=== PATIENT | female | born 1940 | race Two or more races ===

== ENCOUNTER 2020-04-15 13:04 | Inpatient (IN) | payer OTHER, MEDICAID, SELFPAY ==
--- NOTE | 2020-04-15 | ECG_ITS ---
Test Reason : CHEST PAIN Blood Pressure : / mmHG Vent. Rate : 058 BPM Atrial Rate : 058 BPM P-R Int : 210 ms QRS Dur : 088 ms QT Int : 444 ms P-R-T Axes : 079 023 083 degrees QTc Int : 435 ms Sinus bradycardia with 1st degree A-V block with Premature atrial complexes Nonspecific T wave abnormality Lateral leads Abnormal ECG When compared with ECG of 01-JUN-2017 11:55, Premature atrial complexes are now Present T wave amplitude has decreased in Lateral leads Referred By: Generic ED Physician Electronically Signed By:STIVEN HATCH MD
--- NOTE | 2020-04-15 14:04 | ED_ITS ---
HPI - Chest Pain General Chief Complaint: Chest Pain Stated Complaint: CHEST PAIN Time Seen by Provider: 04/15/20 14:04 Source: patient Mode of arrival: ambulatory Limitations: no limitations and language barrier History of Present Illness HPI narrative: patient's history of coronary artery disease had MS in 2017 in [place] no stent was placed cardiac catheterization at that time showed mild aortic insufficiency and mild dilatation of aortic root, with history of hypertension coronal disease high cholesterol came here for left-sided chest pain since 09:00 pressure-like feeling without any significant radiation denies any shortness of breath no diaphoresis no nausea no vomiting no stomach painPatient checked her blood pressure was 187/104 at that time MD complaint: chest discomfort Pertinent past history: coronary artery disease Onset (ago): hour(s) (5) Timing of current episode: constant Prior episodes: Yes Onset: during rest Pain location: left chest Pain radiation: none Severity: mild Related Data Allergies Allergy/AdvReac Type Severity Reaction Status Date / Time No Known Allergies Allergy Verified 04/15/20 14:12 [No Known Allergies*] Review of Systems Review of Systems: REVIEW OF SYSTEMS: Pertinent positives and negatives are stated above in the history. GEN: no fevers, chills, fatigue HEENT: no nasal congestion, sore throat, ear pain NEURO: no headache, dizziness, focal weakness PULM: no cough, shortness of breath CV: no palpitations, LE edema ABD: no abdominal pain, nausea, vomiting, diarrhea : no dysuria, urgency, frequency SKIN: no rash ROS otherwise negative x 10 PMFSH Past Medical History Medical History Hyperlipidemia Hypertension Social History Social History Alcohol intake: never Smoked in Last 30 Days: No Use of substances other than those prescribed or required for medical reasons: No Advance Directives: No Advance Directives Information Provided: Yes Physical Exam Vital Signs: Vital Signs: Last Vital Signs Temp 98.4 F 04/15/20 15:26 Pulse 57 04/15/20 15:26 Resp 16 04/15/20 15:26 BP 161/75 H 04/15/20 15:26 Pulse Ox 94 04/15/20 15:26 Body Mass Index 19.7 Appearance: Alert. Oriented X3. No acute distress. Eyes: Pupils equal, round and reactive to light. ENT: Pharynx normal. Neck: Normal inspection. Neck supple. CVS: Normal heart rate and rhythm. Pulses normal. Respiratory: No respiratory distress. Breath sounds normal. Abdomen: Soft and nontender. nohepato splenomegaly Skin: Skin warm and dry. Normal skin color. Normal skin turgor. Extremities: No lower extremity edema. Good range of movement Neuro: Oriented X 3. No motor deficit. No sensory deficit. MDM - Chest Pain MDM Narrative Medical decision making narrative: patient's ascending aorta aneurysm last CT chest done in 06/2017 showed ascending aorta of 4.5 cm. Patient came with the c hest pain at this time will repeat the CTA to rule out significant increase in aneurysm versus dissection. Patient signed out to Dr. Mckinnon pending CTA report and repeat troponin Differential Diagnosis Differential diagnosis: Likely unstable angina pectoris and chest pain Medical Records Data Attestation: I reviewed the patient's medical records. Lab Data Result diagrams: 04/15/20 14:28 04/15/20 15:26 Labs: Lab Results 04/15/20 04/15/20 04/15/20 Range/Units 14:28 14:28 14:28 WBC 8.0 (4.8-10.8) X10*3/uL RBC 5.32 (4.20-5.50) X10*6/uL Hgb 16.1 H (12.0-16.0) g/dl Hct 50.2 H (37-47) % MCV 94.4 (80-98) fL MCH 30.3 (27.0-33.0) pg MCHC 32.1 (31.0-35.0) g/dl RDW 14.5 (11.0-16.0) % Plt Count 195 (160-400) X10*3/uL MPV 10.7 (9.4-12.3) fL Immature Gran % (Auto) 0.4 (0.0-0.4) % Neut % (Auto) 62.0 (45-73) % Lymph % (Auto) 26.0 (20-40) % [place] % (Auto) 10.7 (2-11) % Eos % (Auto) 0.0 (0-4) % Baso % (Auto) 0.9 (0-2) % Lymph # (Auto) 2.1 (1.2-4.9) X10*3/uL [place] # (Auto) 0.9 (0.1-1.2) X10*3/uL Eos # (Auto) 0.0 (0.0-0.4) X10*3/uL Baso # (Auto) 0.1 (0.0-0.2) X10*3/uL Abs Immat Gran (auto) 0.03 (0.00-0.03) X10*3/uL Absolute Neuts (auto) 5.0 (2.0-8.3) X10*3/uL Absolute Nucleated RBC 0.000 (0.0-0.012) X10*3/uL Nucleated RBC % (auto) 0.0 (0.0-0.2) /100WBC Hold Blue Top SEE NOTE Sodium Cancelled Potassium Cancelled Chloride Cancelled Carbon Dioxide Cancelled Anion Gap Cancelled BUN Cancelled Creatinine Cancelled Estim Creat Clear Calc Cancelled Estimated GFR Cancelled Random Glucose Cancelled Calcium Cancelled Troponin I High Sens (<3.5-17.0) ng/L 04/15/20 04/15/20 Range/Units 14:28 15:26 WBC (4.8-10.8) X10*3/uL RBC (4.20-5.50) X10*6/uL Hgb (12.0-16.0) g/dl Hct (37-47) % MCV (80-98) fL MCH (27.0-33.0) pg MCHC (31.0-35.0) g/dl RDW (11.0-16.0) % Plt Count (160-400) X10*3/uL MPV (9.4-12.3) fL Immature Gran % (Auto) (0.0-0.4) % Neut % (Auto) (45-73) % Lymph % (Auto) (20-40) % [place] % (Auto) (2-11) % Eos % (Auto) (0-4) % Baso % (Auto) (0-2) % Lymph # (Auto) (1.2-4.9) X10*3/uL [place] # (Auto) (0.1-1.2) X10*3/uL Eos # (Auto) (0.0-0.4) X10*3/uL Baso # (Auto) (0.0-0.2) X10*3/uL Abs Immat Gran (auto) (0.00-0.03) X10*3/uL Absolute Neuts (auto) (2.0-8.3) X10*3/uL Absolute Nucleated RBC (0.0-0.012) X10*3/uL Nucleated RBC % (auto) (0.0-0.2) /100WBC Hold Blue Top Sodium 140 Potassium 4.0 Chloride 107 Carbon Dioxide 27 Anion Gap 10 L BUN 16 Creatinine 0.79 Estim Creat Clear Calc 45.3 Estimated GFR > 60 Random Glucose 96 Calcium 9.6 Troponin I High Sens 54.1 H (<3.5-17.0) ng/L ECG Data ECG #1: Attestation: I personally reviewed and interpreted this ECG as follows: ECG interpretation date: 04/15/20 Interpretation: sinus bradycardia with ventricular rate of 58 with first- degree heart block p.r. interval [address] T wave changes normal axis impression sinus bradycardia with first-degree block no acute i schemia Discharge Plan Discharge Clinical Impression: Chest pain
[2020-04-15 14:13] VITALS: BP 168/89; PULSE 60; RESP 18; TEMP 36.6; O2SAT 100; BMI 19.7
--- NOTE | 2020-04-15 14:13 | XR_ITS ---
EXAMINATION: XR CHEST CLINICAL INFORMATION: Chest pain. COMPARISON: Chest 06/01/2017 TECHNIQUE: Frontal view of the chest was obtained. FINDINGS: The lungs are well-expanded and clear of acute pneumonic process. The heart size and pulmonary vascularity is normal. No gross organomegaly seen. XR/XR chest 1V IMPRESSION: Unremarkable chest exam
[2020-04-15 14:38] LABS: MANUAL DIFF FLAG NO
[2020-04-15 14:40] LABS: Basophils Absolute Auto 0.1 X10*3/uL (0.0-0.2); Basophils Percent Auto 0.9 % (0-2); Hematocrit 50.2 % (37-47); Hemoglobin 16.1 g/dl (12.0-16.0); Imm Gran Abs Auto 0.03 X10*3/uL (0.00-0.03); Imm Gran Pct Auto 0.4 % (0.0-0.4); Lymphocytes Absolute Auto 2.1 X10*3/uL (1.2-4.9); Mean Corpuscular HGB Conc 32.1 g/dl (31.0-35.0); Mean Corpuscular Hemoglobin 30.3 pg (27.0-33.0); Mean Corpuscular Volume 94.4 fL (80-98); Mean Platelet Volume 10.7 fL (9.4-12.3); Monocytes Absolute Auto 0.9 X10*3/uL (0.1-1.2); Monocytes Percent Auto 10.7 % (2-11); Platelet Count 195 X10*3/uL (160-400); Red Blood Count 5.32 X10*6/uL (4.20-5.50); Red Cell Distribution Width 14.5 % (11.0-16.0)
[2020-04-15] MEDS: Aspirin 81 MG TAB.CHEW 162 MG PO (14:53)
[2020-04-15] MEDS: Nitroglycerin 2 % Oint 1 GM Packet 0.5 INCH TRANSDERMA ×2 (14:54→22:25)
[2020-04-15 15:26] VITALS: BP 161/75; PULSE 57; RESP 16; TEMP 36.9; O2SAT 94
[2020-04-15 15:32] LABS: Troponin-I High Sensitivity 54.1 ng/L (<3.5-17.0)
[2020-04-15 16:23] LABS: Anion Gap 10 (12-20); Blood Urea Nitrogen 16 mg/dL (9-16); Calcium 9.6 mg/dL (8.4-10.2); Carbon Dioxide 27 mmol/L (22-29); Chloride 107 mmol/L (96-108); Creatinine Clr Calc Pharmacy 45.3; Estimated Glomerular Filt Rate > 60; Glucose Random 96 mg/dL (60-115); Sodium 140 mmol/L (135-145)
--- NOTE | 2020-04-15 17:05 | CT_ITS ---
EXAMINATION: CT ANGIOGRAM CHEST, ABDOMEN AND PELVIS CLINICAL INFORMATION: Aortic aneurysm. COMPARISON: CT of chest 06/30/2017. Chest x-ray 04/15/2020. CT abdomen pelvis 07/02/2015 TECHNIQUE: Noncontrast axial images obtained through the chest. Multiple axial images were obtained through the chest abdomen and pelvis following the administration of 70 mL of Omnipaque 350 intravenous contrast. Coronal and sagittal 2-D reformatted images performed at CT scanner. 2-D axial, sagittal and coronal MIPS images performed at CT scanner No 3-D imaging. DLP: 580 mGy-cm. FINDINGS: VASCULAR: No acute change of the aorta. There is no dissection. There is no aneurysm. There is mild atherosclerotic vascular wall calcifications of the thoracic and abdominal aorta. There is normal enhancement of the major branch vessels at the thoracic aortic arch as well as in the abdomen and pelvis. 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 There are vascular calcifications at the origin of the vessel. The pulmonary arteries are well opacified. No evidence of central pulmonary embolism. MEDIASTINUM: No mediastinal mass. No significant lymphadenopathy. There is no pericardial effusion. LUNGS: No acute infiltrate. No interstitial or reticular opacity. 4 mm calcified granuloma right lower lobe axial image 45 series 8 no suspicious lung nodules. FLUID: There is no pericardial effusion. There is no pleural effusion. AXILLA: No significant lymphadenopathy. LIVER, GALLBLADDER, AND BILIARY TREE: The liver is normal in size, shape, and attenuation. No focal hepatic lesion or biliary ductal dilatation is present. The gallbladder is unremarkable with no evidence of radiopaque gallstones, gallbladder wall thickening, or obvious pericholecystic inflammatory changes. PANCREAS: Unremarkable. SPLEEN: Unremarkable. ADRENAL GLANDS: Stable right adrenal nodule measuring 1.6 x 1 cm unchanged since CAT scan June 2017. Left adrenal gland is normal. KIDNEYS AND URETERS: Nonobstructive stone lower pole of the left kidney measuring 6 mm. Midpole left kidney there is a nonobstructive 3 mm stone. There is no stone in the right kidney. No ureteral calculi. No hydronephrosis. Normal enhancement of the cortex of both kidneys. There are renal cysts.. Largest renal cyst is a7 cm cyst midpole left kidney BLADDER: Unremarkable. GASTROINTESTINAL TRACT: There are numerous diverticula of the sigmoid colon and left colon and scattered diverticula of the right colon. There is no diverticulitis. There is no bowel wall thickening /edema. There is no bowel obstruction. There is a moderate volume of stool in the colon. The appendix is normal . The small bowel loops are unremarkable. The stomach is normal. There is no hiatal hernia. ABDOMINAL WALL: No significant hernia is appreciated. LYMPH NODES: Normal. PELVIC VISCERA: Unremarkable. OSSEOUS STRUCTURES: Unremarkable. CT/CT angio abdomen pelvis IMPRESSION: 1. No aneurysm or dissection of aorta. There are scattered atherosclerotic vascular calcifications of aorta. 2. No acute change of chest. 3. Diverticulosis of the colon. No acute change of the bowel. 4. Stable right adrenal nodule unchanged since 2018 consistent with a benign nodule. [This CT examination was performed using dose optimization techniques as appropriate, variously including the following: *Automated exposure control *Adjustment of mA and/or kV according to patient size (this includes techniques or standardized protocols for targeted exams where dose is matched to indication/reason for exam; i.e. extremities or head) *Use of iterative reconstruction technique]
[2020-04-15] MEDS: Acetaminophen 325 MG TABLET 975 MG PO (17:59)
[2020-04-15] MEDS: 0.9 % Sodium Chloride 1,000 ML 999 ML IVCONT (18:00)
[2020-04-15] MEDS: iohexoL 350 MG/ML 100 ML INFUS..BTL IV (18:34)
[2020-04-15 18:56] LABS: Troponin-I High Sensitivity 289.2 ng/L (<3.5-17.0)
--- NOTE | 2020-04-15 20:18 | PM.IMHP ---
History of Present Illness Date of Service: 04/15/20 Chief Complaint: Chest pain 79 y/o female with PMHX of HTN, HLP, CKD and Previous KS (3 years ago in [place]) s/p angiogram who presented from home due to chest pain> Per history provided by the patient, today around 9 am started experiencing a chest pressure, substernal, none radiating, not associated with exertion, not associated with SOB, nausea or vomiting. Patient reports that the pain has been constant since. 3 years ago reported that had a similar event in [place] and underwent a cardiac cath. After cardiac cath was told that needed a open heart surgery but patient's daughter declined the procedure and after that did not follow up with anybody else. Patient reports that since that incident has been feeling well till today. On presentation to the ED patient was found to have a BP of 168/89 mmHg, HR 57, no evidence of fever, First troponin of 54 which increased to 289.; Initial EKG showing no evidence of ST T wave changes. Decision for admission given. Patient seen and examined at the bedside, laying down in bed in no acute distress. ROS as above otherwise negative. Physical exam unremarkable. Patient reports that after receiving aspirin and nitroglycerin earlier the pain is subsiding. PMHX: HTN, HLP, KS, CKD PSx: Cardiac cath 2016 Toxic habits: No hx of alcohol abuse, smoking or IVDA Review of Systems Cardiovascular: Cardiovascular: Reports chest pain at rest [facility] Medical History Hyperlipidemia Hypertension Functional capacity: independent ambulation Social History Alcohol intake: never Smoked in Last 30 Days: No Use of substances other than those prescribed or required for medical reasons: No Advance Directives: No Advance Directives Information Provided: Yes Meds Allergies Allergy/AdvReac Type Severity Reaction Status Date / Time No Known Allergies Allergy Verified 04/15/20 14:12 [No Known Allergies*] Physical Exam Vital Signs and Narrative: Vital Signs: Last Vital Signs Temp 98.4 F 04/15/20 15:26 Pulse 57 04/15/20 15:26 Resp 16 04/15/20 15:26 BP 161/75 H 04/15/20 15:26 Pulse Ox 94 04/15/20 15:26 Body Mass Index 19.7 Const: General: cooperative, comfortable and no acute distress Orientation/consciousness: oriented to person, oriented to place and oriented to time HENMT: Head: Yes normal to inspection Eyes: General: appearance normal, both eyes and all related structures Neck: Yes normal visual inspection Chest: Chest palpation & inspection: normal inspection of the chest Resp: Effort & Inspection: normal respiratory effort Auscultation: clear to auscultation bilaterally Cardio: Jugular venous distension: no JVD Rate: regular rate Rhythm: regular rhythm Heart sounds: S1 normal heart sound present GI: Inspection: Yes normal to inspection Skin: General skin exam: no rashes or lesions noted Neuro: General: oriented to person, oriented to place and oriented to time Cognition (Neuro): normal cognition Extrem: General: Yes normal to inspection Results Labs CBC and Chem 7: 04/15/20 14:28 04/15/20 15:26 Labs: Laboratory Results - last 24 hr 04/15/20 04/15/20 04/15/20 14:28 14:28 14:28 MCV 94.4 MCH 30.3 MCHC 32.1 RDW 14.5 Plt Count 195 MPV 10.7 Immature Gran % (Auto) 0.4 Neut % (Auto) 62.0 Lymph % (Auto) 26.0 [place] % (Auto) 10.7 Eos % (Auto) 0.0 Baso % (Auto) 0.9 Lymph # (Auto) 2.1 [place] # (Auto) 0.9 Eos # (Auto) 0.0 Baso # (Auto) 0.1 Abs Immat Gran (auto) 0.03 Absolute Neuts (auto) 5.0 Absolute Nucleated RBC 0.000 Nucleated RBC % (auto) 0.0 Hold Blue Top SEE NOTE Anion Gap Cancelled Estim Creat Clear Calc Cancelled Estimated GFR Cancelled Random Glucose Cancelled Calcium Cancelled Troponin I High Sens 04/15/20 04/15/20 04/15/20 14:28 15:26 18:08 MCV MCH MCHC RDW Plt Count MPV Immature Gran % (Auto) Neut % (Auto) Lymph % (Auto) [place] % (Auto) Eos % (Auto) Baso % (Auto) Lymph # (Auto) [place] # (Auto) Eos # (Auto) Baso # (Auto) Abs Immat Gran (auto) Absolute Neuts (auto) Absolute Nucleated RBC Nucleated RBC % (auto) Hold Blue Top Anion Gap 10 L Estim Creat Clear Calc 45.3 Estimated GFR > 60 Random Glucose 96 Calcium 9.6 Troponin I High Sens 54.1 H 289.2 H D Imaging Radiologist's Impressions: Impressions Chest X-Ray 04/15/20 14:13 IMPRESSION: Unremarkable chest exam Chest CTA 04/15/20 17:00 IMPRESSION: 1. No aneurysm or dissection of aorta. There are scattered atherosclerotic vascular calcifications of aorta. 2. No acute change of chest. 3. Diverticulosis of the colon. No acute change of the bowel. 4. Stable right adrenal nodule unchanged since 2018 consistent with a benign nodule. [This CT examination was performed using dose optimization techniques as appropriate, variously including the following: *Automated exposure control *Adjustment of mA and/or kV according to patient size (this includes techniques or standardized protocols for targeted exams where dose is matched to indication/reason for exam; i.e. extremities or head) *Use of iterative reconstruction technique] Abdomen/Pelvis CTA 04/15/20 17:05 IMPRESSION: 1. No aneurysm or dissection of aorta. There are scattered atherosclerotic vascular calcifications of aorta. 2. No acute change of chest. 3. Diverticulosis of the colon. No acute change of the bowel. 4. Stable right adrenal nodule unchanged since 2018 consistent with a benign nodule. [This CT examination was performed using dose optimization techniques as appropriate, variously including the following: *Automated exposure control *Adjustment of mA and/or kV according to patient size (this includes techniques or standardized protocols for targeted exams where dose is matched to indication/reason for exam; i.e. extremities or head) *Use of iterative reconstruction technique] Assessment and Plan (1) NSTEMI (non-ST elevated myocardial infarction): Status: Acute s/p one dose of aspirin 182 mg and plavix 325 mg given per ED attending earlier as well as morphine Started on Heparin drip per ED attending. Continue with heparin drip for now cardiac cath lab technologist continue with aspirin 81 mg daily follow up 2d echo in the am cardiology evaluation in the am (2) Hypertension: Status: Acute continue with home BP meds (3) Hyperlipidemia: Status: Acute continue with home meds as ordered
[2020-04-15 20:23] LABS: Prothrombin Time 11.4 SEC (10.8-13.0)
[2020-04-15 20:26] LABS: PTT Heparin Drip 32.4 SEC (53-77.9)
[2020-04-15] MEDS: Heparin Sodium,Porcine 5,000 UNIT/ML VIAL 900 UNIT IVPUSH (20:28)
[2020-04-15] MEDS: Clopidogrel Bisulfate 300 MG TABLET PO (20:30)
[2020-04-15] MEDS: Heparin Sodium,Porcine 5,000 UNIT/ML VIAL 2939 UNIT IVPUSH (20:30)
[2020-04-15] MEDS: Atorvastatin Calcium 80 MG TABLET PO (20:30)
[2020-04-15 20:31] VITALS: BMI 25.7
[2020-04-15] MEDS: Heparin Sodium,Porcine/1/2NS 25,000 UNIT/250 ML IV.SOLN 6.86 UNIT IVCONT (20:34)
[2020-04-15 20:36] LABS: Hematocrit 49.6 % (37-47); Hemoglobin 15.7 g/dl (12.0-16.0); Mean Corpuscular HGB Conc 31.7 g/dl (31.0-35.0); Mean Corpuscular Hemoglobin 29.8 pg (27.0-33.0); Mean Corpuscular Volume 94.3 fL (80-98); Mean Platelet Volume 10.8 fL (9.4-12.3); Platelet Count 185 X10*3/uL (160-400); Red Blood Count 5.26 X10*6/uL (4.20-5.50); Red Cell Distribution Width 14.5 % (11.0-16.0); White Blood Count 8.2 X10*3/uL (4.8-10.8)
--- NOTE | 2020-04-15 21:15 | PC.NURSE ---
10ml of heparin drip wasted. line had large air bubble and had to be drained from pump to patient.
[2020-04-15 22:37] LABS: Influenza A PCR NEGATIVE (Negative); Influenza B PCR NEGATIVE (Negative); Resp Syncy Virus RNA Qual PCR NEGATIVE (Negative); SARS COV2 PCR INHOUSE NEGATIVE (Negative)
[2020-04-16] VITALS (8 sets, daily range): BP systolic 143–181; BP diastolic 88–95; PULSE 70–82; RESP 17–19; TEMP 36.2–37; O2SAT 94–98
--- NOTE | 2020-04-16 | CA_ITS ---
Acquisition Time: 2020-04-17 08:22:17 Total Exercise Time: 00:02:00 Test Indications: Chest Pain Medications: SEE EMAR Protocol: LEXISCAN Max HR: 089 BPM 62% of Pred: 142 BPM Max BP: 128/078 mmHG Max Work Load: 1.0 METS Pharmacological stress test using Lexiscan while sitting and kicking her feet. Tolerated well, denies any anginal sx. EKG without any arrhythmias, non-diagnostic for ischemia. Nuclear images to follow. Normotensive response to test. Test reviewed with Dr. Fritz. Referred By: Abdirashid Fritz Overread By: Flora Awan
--- NOTE | 2020-04-16 02:35 | PC.NURSE ---
PT TRANSPORTED TO THE UNIT VIA STRETCHER. PT AMBULATED WITH SUPERVISION TO THE BATHROOM. PT IS ALERT AND ORIENTED X 3, STEADY GAIT, NO C/O PAIN, RR IS REGULAR, SR ON THE MONITOR IN THE 70'S. PT IS ON A HEPARIN DRIP AT 14U/KGS/HR OR 8.94 MLS AN HOUR. CREATIVE CONSULTANT WAS USED FOR ADMISSION. SAFETY WAS EXPLAINED, CALL GIBSON WAS PROVIDED. PT STATES SHE USES THE [facility] IN [place] FOR HER PHARMACY. PT IS RESTING IN BED.
[2020-04-16 04:20] LABS: PTT Heparin Drip 109.5 SEC (53-77.9)
[2020-04-16 06:32] LABS: MANUAL DIFF FLAG NO
[2020-04-16 06:46] LABS: Prothrombin Time 11.6 SEC (10.8-13.0)
[2020-04-16 06:48] LABS: PTT Heparin Drip 47.4 SEC (53-77.9)
[2020-04-16 06:54] LABS: Basophils Percent Auto 0.5 % (0-2); Eosinophils Absolute Auto 0.2 X10*3/uL (0.0-0.4); Eosinophils Percent Auto 2.5 % (0-4); Hematocrit 46.1 % (37-47); Hemoglobin 15.2 g/dl (12.0-16.0); Imm Gran Abs Auto 0.03 X10*3/uL (0.00-0.03); Imm Gran Pct Auto 0.4 % (0.0-0.4); Lymphocytes Absolute Auto 2.1 X10*3/uL (1.2-4.9); Lymphocytes Percent Auto 28.7 % (20-40); Mean Corpuscular Hemoglobin 30.5 pg (27.0-33.0); Mean Corpuscular Volume 92.6 fL (80-98); Mean Platelet Volume 11.3 fL (9.4-12.3); Monocytes Absolute Auto 0.9 X10*3/uL (0.1-1.2); Monocytes Percent Auto 12.4 % (2-11); Neutrophils Absolute Auto 4.1 X10*3/uL (2.0-8.3); Neutrophils Percent Auto 55.5 % (45-73); Platelet Count 172 X10*3/uL (160-400); Red Blood Count 4.98 X10*6/uL (4.20-5.50); Red Cell Distribution Width 14.4 % (11.0-16.0); White Blood Count 7.3 X10*3/uL (4.8-10.8)
[2020-04-16 07:03] LABS: Anion Gap 12 (12-20); Blood Urea Nitrogen 16 mg/dL (9-16); Calcium 9.2 mg/dL (8.4-10.2); Carbon Dioxide 24 mmol/L (22-29); Chloride 109 mmol/L (96-108); Cholesterol 162 mg/dL; Creatinine Clr Calc Pharmacy 47.9; Estimated Glomerular Filt Rate > 60; Glucose Random 95 mg/dL (60-115); HDL Cholesterol 35 mg/dL; LDL Cholesterol Calculated 96 mg/dl; Potassium 3.7 mmol/l (3.3-5.1); Sodium 141 mmol/L (135-145); Triglycerides 157 mg/dL
--- NOTE | 2020-04-16 07:13 | PC.NURSE ---
PTT HD at 0600 47.4. Drip decreased by 4 units/kg/hr and restarted per protocol. Drip running at 10units/kg/hr, unable to change appropriate rate in titration MAR. Drip running at 6.39ml/hr currently on IV pump.
[2020-04-16 07:20] LABS: Troponin-I High Sensitivity 327.1 ng/L (<3.5-17.0)
[2020-04-16] MEDS: Valsartan 160 MG TABLET PO (07:36)
[2020-04-16] MEDS: Omeprazole 20 MG CAPSULE.DR PO (07:36)
[2020-04-16] MEDS: Atorvastatin Calcium 20 MG TABLET PO (07:36)
[2020-04-16] MEDS: Aspirin 81 MG TAB.CHEW PO (07:36)
[2020-04-16] MEDS: Metoprolol Succinate ER 50 MG TAB.ER.24H PO ×2 (07:36→22:03)
[2020-04-16] MEDS: 0.9 % Sodium Chloride Flush 3 ML SYRINGE IVFLUSH ×2 (07:36→17:17)
--- NOTE | 2020-04-16 08:54 | MHC.CM.PN ---
CM met and spoke with Patient and her Daughter/Radha.Patient lives in a house with her Daughter/HCP/Iris and she is functionally independent. The goal for dc is to return home, no services and CM has initiated and will follow for dc planning. IMM addressed with Patient and the original has been given to her and a copy has been placed on the chart.PCP is Dr. Yuliya Summers.
[2020-04-16] MEDS: hydroCHLOROthiazide 12.5 MG TABLET PO (08:58)
--- NOTE | 2020-04-16 09:58 | PM.CNCAR ---
History of Present Illness History of Present Illness Date of Service: 04/16/20 Requesting physician: Laina Palomo Consult reason: chest pain Chief complaint: nstemi Narrative: Thank you for calling us for consult on Geena. She is a pleasant 79-year-old woman, history obtained with help of dye range operator. She has prior history of coronary artery disease with NSTEMI in [place] 3 years ago when she underwent cardiac catheterization, this revealed nonobstructive CAD as per Dr. Lopez is notes from his office. Patient has prior history of hypertension and hyperlipidemia as well. As per them there were recommended coronary artery bypass grafting in [place], however there declined at that point time. She has generally done well since then with no exertional symptoms. Intermittently she gets pulsating sharp chest pain which is not exertional in nature. She has undergone myocardial perfusion imaging in the past which has been negative. Yesterday around 09:00 while she was sitting in home she developed precordial and retrosternal chest discomfort which she describes as burning tightness. Symptoms were radiating to her back. No associated symptoms of shortness of breath, nausea, vomiting, diaphoresis. However the symptoms exactly similar to what she had 3 years ago in [place] and she called her daughter and brought her to the emergency room. In the emergency room the initial EKG showed nonspecific ST T wave changes. Initial troponin was slightly elevated at 54. Subsequent elevated troponin in the 280 range. She was therefore admitted with diagnosis of acute coronary syndrome. No repeat EKGs have been performed at this time. She is currently chest pain free after receiving aspirin nitroglycerin. She feels comfortable. She was also noted to have elevated blood pressure on admission. Blood pressure still remains elevated. She received aspirin Plavix, IV heparin, statins and her usual dose of metoprolol at home. She also received nitro paste. Review of Systems Constitutional: Constitutional: Denies body ache(s), Denies chills, Denies fever(s) and Denies lethargy Eyes: Eyes: Reports no additional eye complaints ENT: Reports system reviewed and no additional complaints, except as documented Cardiovascular: Cardiovascular: Denies chest pain with activity, Denies rapid heart rate, Denies lightheadedness, Denies Loss of Consciousness, Denies palpitations, Denies orthopnea and Denies paroxysmal nocturnal dyspnea Respiratory: Respiratory: Denies cough and Denies excessive phlegm production Gastrointestinal: Gastrointestinal: Reports no additional gastrointestinal complaints Genitourinary: Genitourinary: Reports no additional female genitourinary complaints Neurologic: Reports system reviewed and no additional complaints, except as documented Psychiatric: Psychiatric: Reports no additional psychiatric complaints Endocrine: Endocrine: Reports no additional endocrine complaints and Denies palpitations Hematologic/Lymphatic: Hematologic/Lymphatic: Reports no additional hematologic/lymphatic complaints Allergic/Immunologic: Allergic/Immunologic: Reports no additional allergic/immunologic complaints [facility] Past Medical History Medical History Hyperlipidemia Hypertension Functional capacity: independent ambulation Social History Social History Household Members: Children Housing: House Do you presently have visiting nurse or other home services: No Alcohol intake: never Smoking Status: Never smoker Smoked in Last 30 Days: No Second Hand Smoke Exposure: No Use of substances other than those prescribed or required for medical reasons: No Currently Displaying Signs/Symptoms of Drug Intoxication Withdrawal: No Any prior treatment program specific to substance use: No Have you been hit, kicked, punched, or otherwise hurt by someone within the past year? If so, by whom?: No Do you feel safe in your current relationship?: No Current Relationship Is there a partner from a previous relationship who is making you feel unsafe now?: No Are you made to feel afraid or neglected: No Advance Directives: No Advance Directives Information Provided: Yes Advance Directives on File: No Do you have thoughts of harming others: None Do you have a plan to hurt others: No Plan Recently lost weight without trying: No service: No Current occupational status: disabled Meds Allergies Allergy/AdvReac Type Severity Reaction Status Date / Time No Known Allergies Allergy Verified 04/15/20 14:12 [No Known Allergies*] Home Medications Medication Instructions Recorded Confirmed Type aspirin 1 tab PO DAILY 04/15/20 04/15/20 History atorvastatin 1 tab PO DAILY 04/15/20 04/15/20 History candesartan-hydrochlorothiazid 1 tab PO DAILY 04/15/20 04/15/20 History hydralazine 1 tab PO BID 04/15/20 04/15/20 History metoprolol succinate 1 tab PO BID 04/15/20 04/15/20 History naproxen 1 tab PO BID 04/15/20 04/15/20 History omega-3 acid ethyl esters 1 cap PO DAILY 04/15/20 04/15/20 History omeprazole 1 cap PO DAILY 04/15/20 04/15/20 History Physical Exam Vital Signs: Vital Signs: Last Vital Signs Temp 98.1 F 04/16/20 07:22 Pulse 82 04/16/20 07:22 Resp 17 04/16/20 07:22 BP 159/95 H 04/16/20 07:22 Pulse Ox 94 04/16/20 07:22 Body Mass Index 25.7 Const: General: cooperative, comfortable, no acute distress, alert and awake Nutritional Appearance: overweight Orientation/consciousness: patient oriented x3 Limitations: other limitations (Currently in bed) HENMT: Head: Yes normal to inspection, Yes normocephalic and Yes atraumatic Eyes: General: appearance normal, both eyes and all related structures Neck: Neck: Yes trachea midline, Yes supple and Yes no JVD Carotids: other (No carotid bruit) Chest: Chest palpation & inspection: normal inspection of the chest Resp: Effort & Inspection: normal respiratory effort Auscultation: clear to auscultation bilaterally Cardio: Jugular venous distension: no JVD Palpation: normal PMI Rate: regular rate Rhythm: regular rhythm Heart sounds: S1 normal heart sound present, S2 normal heart sound present and Other heart sounds present (S4 present) GI: Auscultation: normal bowel sounds Skin: General skin exam: no rashes or lesions noted Neuro: General: patient oriented x3 and no focal motor deficits Extrem: General: Yes no clubbing, cyanosis or edema Psych: Appearance: grossly normal Results Labs and Meds Result diagrams: 04/16/20 05:59 04/16/20 05:59 Lab results: Laboratory Results - last 24 hr 04/15/20 04/15/20 04/15/20 14:28 14:28 14:28 WBC 8.0 RBC 5.32 Hgb 16.1 H Hct 50.2 H MCV 94.4 MCH 30.3 MCHC 32.1 RDW 14.5 Plt Count 195 MPV 10.7 Immature Gran % (Auto) 0.4 Neut % (Auto) 62.0 Lymph % (Auto) 26.0 [place] % (Auto) 10.7 Eos % (Auto) 0.0 Baso % (Auto) 0.9 Lymph # (Auto) 2.1 [place] # (Auto) 0.9 Eos # (Auto) 0.0 Baso # (Auto) 0.1 Abs Immat Gran (auto) 0.03 Absolute Neuts (auto) 5.0 Absolute Nucleated RBC 0.000 Nucleated RBC % (auto) 0.0 PT INR PTT (Heparin Protocol) Hold Blue Top SEE NOTE Sodium Cancelled Potassium Cancelled Chloride Cancelled Carbon Dioxide Cancelled Anion Gap Cancelled BUN Cancelled Creatinine Cancelled Estim Creat Clear Calc Cancelled Estimated GFR Cancelled Random Glucose Cancelled Calcium Cancelled Troponin I High Sens Triglycerides Cholesterol LDL Cholesterol, Calc HDL Cholesterol Coronavirus (PCR) Influenza Type A (PCR) Influenza Type B (PCR) RSV RNA Qual (PCR) 04/15/20 04/15/20 04/15/20 14:28 15:26 18:08 WBC RBC Hgb Hct MCV MCH MCHC RDW Plt Count MPV Immature Gran % (Auto) Neut % (Auto) Lymph % (Auto) [place] % (Auto) Eos % (Auto) Baso % (Auto) Lymph # (Auto) [place] # (Auto) Eos # (Auto) Baso # (Auto) Abs Immat Gran (auto) Absolute Neuts (auto) Absolute Nucleated RBC Nucleated RBC % (auto) PT INR PTT (Heparin Protocol) Hold Blue Top Sodium 140 Potassium 4.0 Chloride 107 Carbon Dioxide 27 Anion Gap 10 L BUN 16 Creatinine 0.79 Estim Creat Clear Calc 45.3 Estimated GFR > 60 Random Glucose 96 Calcium 9.6 Troponin I High Sens 54.1 H 289.2 H D Triglycerides Cholesterol LDL Cholesterol, Calc HDL Cholesterol Coronavirus (PCR) Influenza Type A (PCR) Influenza Type B (PCR) RSV RNA Qual (PCR) 04/15/20 04/15/20 04/15/20 20:05 20:27 20:27 WBC 8.2 RBC 5.26 Hgb 15.7 Hct 49.6 H MCV 94.3 MCH 29.8 MCHC 31.7 RDW 14.5 Plt Count 185 MPV 10.8 Immature Gran % (Auto) Neut % (Auto) Lymph % (Auto) [place] % (Auto) Eos % (Auto) Baso % (Auto) Lymph # (Auto) [place] # (Auto) Eos # (Auto) Baso # (Auto) Abs Immat Gran (auto) Absolute Neuts (auto) Absolute Nucleated RBC 0.000 Nucleated RBC % (auto) 0.0 PT 11.4 INR 1.0 PTT (Heparin Protocol) 32.4 L Hold Blue Top Sodium Potassium Chloride Carbon Dioxide Anion Gap BUN Creatinine Estim Creat Clear Calc Estimated GFR Random Glucose Calcium Troponin I High Sens Triglycerides Cholesterol LDL Cholesterol, Calc HDL Cholesterol Coronavirus (PCR) NEGATIVE Influenza Type A (PCR) NEGATIVE Influenza Type B (PCR) NEGATIVE RSV RNA Qual (PCR) NEGATIVE 04/16/20 04/16/20 04/16/20 02:59 05:59 05:59 WBC RBC Hgb Hct MCV MCH MCHC RDW Plt Count MPV Immature Gran % (Auto) Neut % (Auto) Lymph % (Auto) [place] % (Auto) Eos % (Auto) Baso % (Auto) Lymph # (Auto) [place] # (Auto) Eos # (Auto) Baso # (Auto) Abs Immat Gran (auto) Absolute Neuts (auto) Absolute Nucleated RBC Nucleated RBC % (auto) PT INR PTT (Heparin Protocol) 109.5 H* D Hold Blue Top Sodium Potassium Chloride Carbon Dioxide Anion Gap BUN Creatinine Estim Creat Clear Calc Estimated GFR Random Glucose Calcium Troponin I High Sens 327.1 H Triglycerides 157 Cholesterol 162 LDL Cholesterol, Calc 96 HDL Cholesterol 35 Coronavirus (PCR) Influenza Type A (PCR) Influenza Type B (PCR) RSV RNA Qual (PCR) 04/16/20 04/16/20 04/16/20 05:59 05:59 05:59 WBC Cancelled 7.3 RBC Cancelled 4.98 Hgb Cancelled 15.2 Hct Cancelled 46.1 MCV Cancelled 92.6 MCH Cancelled 30.5 MCHC Cancelled 33.0 RDW Cancelled 14.4 Plt Count Cancelled 172 MPV Cancelled 11.3 Immature Gran % (Auto) 0.4 Neut % (Auto) 55.5 Lymph % (Auto) 28.7 [place] % (Auto) 12.4 H Eos % (Auto) 2.5 Baso % (Auto) 0.5 Lymph # (Auto) 2.1 [place] # (Auto) 0.9 Eos # (Auto) 0.2 Baso # (Auto) 0.0 Abs Immat Gran (auto) 0.03 Absolute Neuts (auto) 4.1 Absolute Nucleated RBC Cancelled 0.000 Nucleated RBC % (auto) Cancelled 0.0 PT 11.6 INR 1.0 PTT (Heparin Protocol) Hold Blue Top Sodium Potassium Chloride Carbon Dioxide Anion Gap BUN Creatinine Estim Creat Clear Calc Estimated GFR Random Glucose Calcium Troponin I High Sens Triglycerides Cholesterol LDL Cholesterol, Calc HDL Cholesterol Coronavirus (PCR) Influenza Type A (PCR) Influenza Type B (PCR) RSV RNA Qual (PCR) 04/16/20 04/16/20 05:59 05:59 WBC RBC Hgb Hct MCV MCH MCHC RDW Plt Count MPV Immature Gran % (Auto) Neut % (Auto) Lymph % (Auto) [place] % (Auto) Eos % (Auto) Baso % (Auto) Lymph # (Auto) [place] # (Auto) Eos # (Auto) Baso # (Auto) Abs Immat Gran (auto) Absolute Neuts (auto) Absolute Nucleated RBC Nucleated RBC % (auto) PT INR PTT (Heparin Protocol) 47.4 L D Hold Blue Top Sodium 141 Potassium 3.7 Chloride 109 H Carbon Dioxide 24 Anion Gap 12 BUN 16 Creatinine 0.85 Estim Creat Clear Calc 47.9 Estimated GFR > 60 Random Glucose 95 Calcium 9.2 Troponin I High Sens Triglycerides Cholesterol LDL Cholesterol, Calc HDL Cholesterol Coronavirus (PCR) Influenza Type A (PCR) Influenza Type B (PCR) RSV RNA Qual (PCR) EKG shows normal sinus rhythm with nonspecific T-wave changes Assessment and Plan (1) NSTEMI (non-ST elevated myocardial infarction): Status: Acute Symptoms and biomarker evidence suggestive of acute coronary syndrome with some myocardial injury. There is clear rise in troponins which is consistent with again acute coronary syndrome. However given her prior history of nonobstructive CAD with similar symptoms as also possibility of coronary vaso spasm or NSTEMI related to uncontrolled blood pressure. However primary ACS is possible and will treat her with IV heparin, dual antiplatelet therapy with aspirin and Plavix. Continue metoprolol therapy, cannot maximize it due to baseline sinus bradycardia. Continue with nitro paste. We discussed about treatment options with both her and her daughter with help of dye range operator. Options include invasive cardiac catheterization to evaluate coronary anatomy and 2nd option being conservative management with noninvasive evaluation with echocardiogram and stress test. Given her prior nonobstructive CAD, patient patient's daughter are leading to was doing noninvasive workup at this point time. Will obtain an echocardiogram to assess LV systolic and diastolic function and to assess for regional wall motion abnormality. After 48 hour treatment will follow-up with resting perfusion study and stress perfusion study tomorrow and day after tomorrow respectively. Further treatment based on the findings of the noninvasive studies. Blood pressure needs to be better managed. Continue with high-intensity statin therapy. (2) Hypertension: Status: Acute Uncontrolled blood pressure for her current clinical condition. Continue metoprolol and nitro paste. Add Norvasc 5 mg to her regimen. Will follow with the patient. Thank you for allowing us to partake in her care
--- NOTE | 2020-04-16 10:08 | NM_ITS ---
Myocardial perfusion study Indication: Acute coronary syndrome to evaluate for myocardial ischemia Technique: The patient was brought in for a Lexiscan perfusion study on 04/17/2020. Patient performed low-level exercise and was injected 0.4 mg of Lexiscan intravenously. Within a minute of injection, 25 mCi of sestamibi was given intravenously. Images were obtained using the SPECT gamma camera interlaced with the gating device. Images were obtained in supine position. Resting perfusion study was performed on 04/16/2020. Patient was administered 25 mCi of sestamibi intravenously at rest. Images were then obtained in supine position. Images obtained with and without CT attenuation. Total DLP 73 mgy-cm. Images were processed with the software and compared side to side in short axis, horizontal long axis and vertical long axis views. Findings: The stress perfusion study showed non attenuated images show mildly reduced uptake in the basal lateral as well as minimal thinning of the apical lateral wall of the LV myocardium. Remainder of the LV myocardium is normally perfused. Attenuated corrected images show minimal thinning of the apex of the LV myocardium. The gated study shows normal LV systolic function with calculated LVEF of greater than 70 %. LV cavity is normal size. The gated study shows normal systolic wall thickening and contraction of segments. Resting study shows no change in perfusion study compared to stress perfusion study. Gating at rest reveals normal systolic wall motion with ejection fraction at greater than 70 %. The findings are consistent with normal myocardial perfusion. NM/NM mike perf SPECT rest & str Impression: 1. Myocardial perfusion imaging study shows normal myocardial perfusion 2. Gated LVEF is greater than 70% 3. Transient ischemic dilatation not present EKG is nondiagnostic for ischemia
--- NOTE | 2020-04-16 10:59 | HO.PM.IMPN ---
Subjective Subjective Date of Service: 04/16/20 Interval History: Seen in f/u for NSTEMI, presently no pain and hemodynamically stable. Review of Systems no chest pain, no sob Physical Exam Vital Signs: Vital Signs: Last Vital Signs Temp 98.1 F 04/16/20 07:22 Pulse 82 04/16/20 07:22 Resp 17 04/16/20 07:22 BP 159/95 H 04/16/20 07:22 Pulse Ox 94 04/16/20 07:22 Body Mass Index 25.7 General: AO X 3, no acute distress Resp: CTA bilateral CVS: S1,S2,RRR GI: +BS, NT, no distention Skin: No rash Neuro: motor grossly intact Psych: appropriate affect Objective Data Current Medications Generic Name Dose Route Start Last Admin Trade Name Freq PRN Reason Stop Dose Admin Amlodipine Besylate 5 mg 04/16/20 10:10 Amlodipine Besylate 5 Mg Tablet PO DAILY [facility] Protocol Aspirin 81 mg 04/16/20 06:00 04/16/20 07:36 Aspirin 81 Mg Tab.Chew PO 81 mg Q24H CHRISTINA Administration Atorvastatin Calcium 20 mg 04/16/20 09:00 04/16/20 07:36 Atorvastatin Calcium 20 Mg Tablet PO 20 mg DAILY CHRISTINA Administration Clopidogrel Bisulfate 75 mg 04/16/20 10:15 Clopidogrel Bisulfate 75 Mg Tablet PO DAILY [facility] Hydrochlorothiazide 12.5 mg 04/16/20 09:00 04/16/20 08:58 Hydrochlorothiazide 12.5 Mg Tablet PO 12.5 mg DAILY [facility] Administration Protocol Heparin Sodium/Sodium Chloride 25,000 unit in 250 mls @ 0 mls/hr 04/15/20 20:00 04/16/20 07:05 IVCONT 10 units/kg/hr .Q0M [facility] 4.9 mls/hr Titration Protocol Per Protocol Metoprolol Succinate 50 mg 04/16/20 09:00 04/16/20 07:36 Metoprolol Succinate Er 50 Mg Tab.Er.24h PO 50 mg BID [facility] Administration Protocol Omeprazole 20 mg 04/16/20 06:30 04/16/20 07:36 Omeprazole 20 Mg Capsule. PO 20 mg DAILY@0630 [facility] Administration Pharmacy Consult 1 each 04/15/20 21:24 Consult Rx Perform Med Rec MISCELLANE 04/16/20 21:23 ONCE PRN Consult order Sodium Chloride 3 ml 04/16/20 02:06 04/16/20 07:36 0.9 % Sodium Chloride Flush 3 Ml Syringe IVFLUSH 3 ml QSHIFT CHRISTINA Administration Valsartan 160 mg 04/16/20 09:00 04/16/20 07:36 Valsartan 160 Mg Tablet PO 160 mg DAILY CHRISTINA Administration Labs CBC & Chem 7: 04/16/20 05:59 04/16/20 05:59 Assessment and Plan (1) NSTEMI (non-ST elevated myocardial infarction): Status: Acute (2) Hypertension: Status: Acute (3) Hyperlipidemia: Status: Acute Assessment and Plan: 79/F with known non obstructive CAD, HTN, HLD here with chest pain and NSTEMI--presently pain free and hemodynamically stable. NSTEMI--trop has peaked and no further pain -Medical therapy with Heparin for 48hrs -ASA, Plavix, Metoprolol and Lipitor -Echo -further risk stratification with stress in 48 hours. -Cardiology input noted HTN-BP is still high -would continue Metoprolol, Divoan and Increase Norvasc to 10 HLD--Lipitor
[2020-04-16] MEDS: Clopidogrel Bisulfate 75 MG TABLET PO (11:58)
[2020-04-16] MEDS: amLODIPine Besylate 5 MG TABLET PO (11:58)
[2020-04-16 15:46] LABS: PTT Heparin Drip 76.1 SEC (53-77.9)
[2020-04-16] MEDS: Heparin Sodium,Porcine/1/2NS 25,000 UNIT/250 ML IV.SOLN 2.94 UNIT IVCONT (21:58)
[2020-04-16 23:22] LABS: PTT Heparin Drip 42.7 SEC (53-77.9)
[2020-04-17] MEDS: Heparin Sodium,Porcine 5,000 UNIT/ML VIAL 2600 UNIT IVPUSH (00:16)
--- NOTE | 2020-04-17 00:20 | PC.NURSE ---
2300 ptt-hd low @ 42.7. Per protocol increase gtt by 2 un/kg/hr and 40 un/kg bolus. PRN heparin bolus given (2,556units) and gtt increased to 8un/kg/hr. There was no PRN heparin boluses ordered, text out to Dr Santana, he then ordered PRN 2,556 unit buolus. Next ptt-hd entered for 0600.
[2020-04-17] MEDS: 0.9 % Sodium Chloride Flush 3 ML SYRINGE IVFLUSH ×2 (00:45→14:54)
--- NOTE | 2020-04-17 02:06 | CA_ITS ---
Transthoracic Echocardiogram Patient (Last, First, Middle): Geena Reza, Gender: Female Date of : 1940 Age: 79 Procedure Date: 04/17/2020 Procedure Type: Transthoracic Echocardiogram Location: [facility] [place] Height: 157.48 cm Weight: 63.5 kg BSA: 1.64 m2 Heart Rate: bpm BP: 150 / 92 mmHg Laminator: JAS Referring MD: Laina Palomo MD [employer] Supervisor: Abdirashid Fritz MD Symptoms: NSTEMI Study Quality: Fair ECG Rhythm: Sinus Conclusions: - 1. Normal LV systolic function with grade 1 diastolic dysfunction 2. Mild aortic stenosis and regurgitation 3. Normal RV systolic pressure 4. Mildly dilated ascending aorta 5. No pericardial effusion Findings Left Ventricle Normal left ventricular size, thickness, and systolic function. The visually estimated ejection fraction is between 60-65%. Regional wall motion abnormalities can not be excluded due to suboptimal endocardial definition. Spectral Doppler is indicative of an impaired relaxation filling pattern. E/E prime ratio is <8, consistent with normal filling pressures. Evidence suggests grade I (mild) diastolic dysfunction. There is mild septal asymmetric hypertrophy. Right Ventricle Normal right ventricular cavity size and systolic function. Atria Both atria are normal in size. There is a mobile atrial septum noted. Aortic Valve There is mild calcification of the aortic valve. There is mild thickening of the aortic valve. There is mild aortic valve stenosis. There is mild aortic valve regurgitation. Mitral Valve Likely normal mitral valve structure and function. There is trace mitral valve regurgitation. There is no mitral valve stenosis. Pulmonic Valve The pulmonic valve was not well visualized. Tricuspid Valve Likely normal tricuspid valve structure and function. There is trace tricuspid valve regurgitation. The right ventricular systolic pressure is normal. The right ventricular systolic pressure is 24 mmHg. Normal right atrial pressure. There is no evidence of pulmonary hypertension. Great Vessels The pulmonary artery was not well visualized. There is mild dilatation of the ascending aorta measuring 4.00 cm. Venous The inferior vena cava is normal in size and collapses greater than 50% with inspiration. Pericardium/Pleural There is no evidence of pericardial effusion. Prior Study Comparison Changes noted compared to prior study dated: 09/17/2015. Mild aortic stenosis is noted Measurements 2D Linear Measurements IVSd: 0.80 0.6-0.9/0.6-1.0 cm LVIDd: 4.13 3.9-5.3/4.2-5.9 cm LVIDd Index: 2.52 2.4-3.2/2.2-3.1 cm/m2 LVIDs: 2.56 2.0-3.6 cm LVPWd: 0.81 0.7-1.1 cm Ao Root: 3.60 2.1-3.5 cm LA Diam: 2.50 2.7-3.8/3.0-4.0 cm LAIDs Index: 1.52 1.5-2.3 cm/m2 LV Mass: 123.11 67-162/88-224 g LV Mass Index: 75.07 43-95/49-115 g/m2 LVOT Diam: 2.10 3.0+(-)1.3 cm 2D Systolic Function EF 4C: 68.80 >55% EF 2C: 65.70 >55% EF BiP: 68.80 >55% Mitral Valve MV Pk E: 0.58 MV PK A: 1.16 MV Decel Time: 243.00 E/A: 0.50 E'Lateral: 5.42 E'Medial: 4.54 E/E' Med: 12.70 E/E' Lat: 10.60 PHT: 71.00 MVA PHT: 3.10 Decel [place]: 2.38 Aortic Valve AoV Pk Deepak: 2.00 AoV Pk Grad: 16.00 LVOT LVOT Pk Deepak: 1.06 LVOT Mn Deepak: 0.73 LVOT VTI: 0.23 LVOT Pk Grad: 4.00 LVOT Mn Grad: 2.00 LVOT Diam: 2.10 LVOT Area: 3.46 Diastolic Function MV Pk E: 0.58 MV Pk A: 1.16 E/A: 0.50 E'Medial: 4.54 E/E' Med: 12.70 E' Laterial: 5.42 E/E' Lat: 10.60 Tricuspid Valve TR Pk Deepak: 2.28 TR Pk Grad: 21.00 RA Press: 3.00 RVSP: 24.00 Great Vessels Aorta Ao Root-2D: 3.60 2.0-3.7 cm Ao Asc: 4.00 2.1-3.4 cm Updated in Other Vendor System with Status of Final Abdirashid Fritz MD electronically signed on 04/17/2020 12:10:02 PM with status of Final
[2020-04-17 04:00] VITALS: BP 123/81; PULSE 65; RESP 18; TEMP 36.8; O2SAT 94
[2020-04-17] MEDS: Aspirin 81 MG TAB.CHEW PO (05:47)
[2020-04-17] MEDS: Omeprazole 20 MG CAPSULE.DR PO (05:47)
[2020-04-17 07:50] LABS: PTT Heparin Drip 117.9 SEC (53-77.9)
[2020-04-17 08:00] VITALS: BP 111/71; PULSE 68; RESP 18; TEMP 36.7; O2SAT 98
[2020-04-17] MEDS: Atorvastatin Calcium 20 MG TABLET PO (11:43)
[2020-04-17 11:44] VITALS: BP 126/73; PULSE 64
[2020-04-17] MEDS: amLODIPine Besylate 5 MG TABLET PO (11:44)
[2020-04-17] MEDS: Valsartan 160 MG TABLET PO (11:45)
[2020-04-17] MEDS: Clopidogrel Bisulfate 75 MG TABLET PO (11:45)
[2020-04-17] MEDS: hydroCHLOROthiazide 12.5 MG TABLET PO (11:45)
[2020-04-17] MEDS: Metoprolol Succinate ER 50 MG TAB.ER.24H PO (11:46)
[2020-04-17 11:51] VITALS: BP 126/73; PULSE 64; RESP 18; TEMP 36.6; O2SAT 94
--- NOTE | 2020-04-17 13:13 | P.PNIM_ITS ---
Subjective Subjective Date of Service: 04/17/20 Interval History: Seen in f/u for NSTEMI. Well, no chest pain. Review of Systems no chest pain, no sob Physical Exam Vital Signs: Vital Signs: Last Vital Signs Temp 97.8 F 04/17/20 11:51 Pulse 64 04/17/20 11:51 Resp 18 04/17/20 11:51 BP 126/73 04/17/20 11:51 Pulse Ox 94 04/17/20 11:51 Body Mass Index 25.7 General: Alert, no distress Resp: CTA bilateral CVS: S1,S2,RRR GI: +BS, NT, no distention Skin: No rash Neuro: motor grossly intact Psych: appropriate affect Objective Data Current Medications Generic Name Dose Route Start Last Admin Trade Name Freq PRN Reason Stop Dose Admin Amlodipine Besylate 5 mg 04/16/20 10:10 04/17/20 11:44 Amlodipine Besylate 5 Mg Tablet PO 5 mg DAILY CHRISTINA Administration Protocol Aspirin 81 mg 04/16/20 06:00 04/17/20 05:47 Aspirin 81 Mg Tab.Chew PO 81 mg Q24H CHRISTINA Administration Atorvastatin Calcium 20 mg 04/16/20 09:00 04/17/20 11:43 Atorvastatin Calcium 20 Mg Tablet PO 20 mg DAILY CHRISTINA Administration Clopidogrel Bisulfate 75 mg 04/16/20 10:15 04/17/20 11:45 Clopidogrel Bisulfate 75 Mg Tablet PO 75 mg DAILY CHRISTINA Administration Heparin Sodium (Porcine) 2,600 unit 04/16/20 23:59 04/17/20 00:16 Heparin Sodium,Porcine 5,000 Unit/Ml Vial IVPUSH 2,556 unit BOLUS PRN Administration 40 unit/kg - Heparin Protocol Hydrochlorothiazide 12.5 mg 04/16/20 09:00 04/17/20 11:45 Hydrochlorothiazide 12.5 Mg Tablet PO 12.5 mg DAILY CHRISTINA Administration Protocol Heparin Sodium/Sodium Chloride 25,000 unit in 250 mls @ 0 mls/hr 04/15/20 20:00 04/17/20 10:09 IVCONT 4 units/kg/hr .Q0M CHRISTINA 1.96 mls/hr Titration Protocol Per Protocol Metoprolol Succinate 50 mg 04/16/20 09:00 04/17/20 11:46 Metoprolol Succinate Er 50 Mg Tab.Er.24h PO 50 mg BID CHRISTINA Administration Protocol Omeprazole 20 mg 04/16/20 06:30 04/17/20 05:47 Omeprazole 20 Mg Capsule. PO 20 mg DAILY@0630 [facility] Administration Sodium Chloride 3 ml 04/16/20 02:06 04/17/20 08:37 0.9 % Sodium Chloride Flush 3 Ml Syringe IVFLUSH Not Given QSHIFT [facility] Valsartan 160 mg 04/16/20 09:00 04/17/20 11:45 Valsartan 160 Mg Tablet PO 160 mg DAILY CHRISTINA Administration Labs CBC & Chem 7: 04/16/20 05:59 04/16/20 05:59 Assessment and Plan (1) NSTEMI (non-ST elevated myocardial infarction): Status: Acute (2) Hypertension: Status: Acute (3) Hyperlipidemia: Status: Acute Assessment and Plan: 79/F with known non obstructive CAD, HTN, HLD here with chest pain and NSTEMI--presently pain free and hemodynamically stable. NSTEMI--trop has peaked and no further pain -Medical therapy with Heparin for 48hrs total -ASA, Plavix, Metoprolol and Lipitor -Echo today -further risk stratification with stress tomorrow, resting today -Cardiology input noted HTN-BP is still high -would continue Metoprolol, Divoan and Increase Norvasc to 10 HLD--Lipitor
--- NOTE | 2020-04-17 14:23 | P.PNCA_ITS ---
Subjective Subjective Date of Service: 04/17/20 Principal diagnosis: NSTEMI Interval history: Patient does not complain of any chest discomfort. Blood pressure is better controlled. Underwent myocardial perfusion imaging which is within normal limits with no ischemia. Echocardiogram shows normal LV systolic function. Review of Systems Constitutional: Reports no additional constitutional complaints Eyes: Reports no additional eye complaints Reports system reviewed and no additional complaints, except as documented Cardiovascular: Denies chest pain, Denies lightheadedness and Denies palpitations Respiratory: Reports no additional respiratory complaints Gastrointestinal: Reports no additional gastrointestinal complaints Genitourinary: Reports no additional female genitourinary complaints Reports system reviewed and no additional complaints, except as documented Psychiatric: Reports no additional psychiatric complaints Endocrine: Reports no additional endocrine complaints and Denies palpitations Physical Exam Vital Signs: Last Vital Signs Temp 97.8 F 04/17/20 11:51 Pulse 64 04/17/20 11:51 Resp 18 04/17/20 11:51 BP 126/73 04/17/20 11:51 Pulse Ox 94 04/17/20 11:51 Body Mass Index 25.7 Const General: cooperative, comfortable, alert and awake Orientation/consciousness: patient oriented x3 Limitations: no limitations HENMT Head: Yes normal to inspection, Yes normocephalic and Yes atraumatic Eyes General: appearance normal, both eyes and all related structures Neck Neck: Yes trachea midline, Yes supple and Yes no JVD Chest Chest palpation & inspection: normal inspection of the chest Resp Effort & Inspection: normal respiratory effort Auscultation: clear to auscultation bilaterally Cardio Jugular venous distension: no JVD Palpation: normal PMI Rate: regular rate Rhythm: regular rhythm Heart sounds: S1 normal heart sound present, S2 normal heart sound present and O ther heart sounds present ( Soft S4 present) GI Auscultation: normal bowel sounds Skin General skin exam: ecchymosis Neuro General: patient oriented x3 and no focal motor deficits Extrem General: Yes no clubbing, cyanosis or edema Results Labs and Meds Result diagrams: 04/16/20 05:59 04/16/20 05:59 Lab results: Laboratory Results - last 24 hr 04/16/20 04/16/20 04/17/20 14:46 22:47 05:54 PTT (Heparin Protocol) 76.1 D 42.7 L D 117.9 H* D D-Dimer Cancelled 04/17/20 09:38 PTT (Heparin Protocol) 60.0 D D-Dimer Impression: 1. Myocardial perfusion imaging study shows normal myocardial perfusion 2. Gated LVEF is greater than 70% 3. Transient ischemic dilatation not present Conclusions: - 1. Normal LV systolic function with grade 1 diastolic dysfunction 2. Mild aortic stenosis and regurgitation 3. Normal RV systolic pressure 4. Mildly dilated ascending aorta 5. No pericardial effusion Progress Note: A&P Assessment and plan (1) NSTEMI (non-ST elevated myocardial infarction): Status: Acute Assessment and Plan: symptom presentation as well as elevated troponin consistent with NSTEMI. Myocardial perfusion imaging is within normal limits suggestive of nonobstructive CAD as noted by prior cardiac catheterization. Cause of NSTEMI either related to high blood pressure or coronary vasospasm. Her blood pressure is well controlled and she is currently on Norvasc therapy which should help with coronary vasospasm as well as blood pressure control. Continue the same. Continue dual antiplatelet therapy for total of 9 months. Continue high-in tensity statin therapies. IV heparin can be discontinued. If patient ambulates and has no further chest discomfort can be discharged home today. Will follow up in the clinic in 2 weeks time, sooner p.r.n.. Thank you for allowing me to partake in her care Fall Risk Details Current Medications: Current Medications Generic Name Dose Route Start Last Admin Trade Name Freq PRN Reason Stop Dose Admin Amlodipine Besylate 5 mg 04/16/20 10:10 04/17/20 11:44 Amlodipine Besylate 5 Mg Tablet PO 5 mg DAILY CHRISTINA Administration Protocol Aspirin 81 mg 04/16/20 06:00 04/17/20 05:47 Aspirin 81 Mg Tab.Chew PO 81 mg Q24H CHRISTINA Administration Atorvastatin Calcium 20 mg 04/16/20 09:00 04/17/20 11:43 Atorvastatin Calcium 20 Mg Tablet PO 20 mg DAILY CHRISTINA Administration Clopidogrel Bisulfate 75 mg 04/16/20 10:15 04/17/20 11:45 Clopidogrel Bisulfate 75 Mg Tablet PO 75 mg DAILY CHRISTINA Administration Heparin Sodium (Porcine) 2,600 unit 04/16/20 23:59 04/17/20 00:16 Heparin Sodium,Porcine 5,000 Unit/Ml Vial IVPUSH 2,556 unit BOLUS PRN Administration 40 unit/kg - Heparin Protocol Hydrochlorothiazide 12.5 mg 04/16/20 09:00 04/17/20 11:45 Hydrochlorothiazide 12.5 Mg Tablet PO 12.5 mg DAILY CHRISTINA Administration Protocol Heparin Sodium/Sodium Chloride 25,000 unit in 250 mls @ 0 mls/hr 04/15/20 20:00 04/17/20 10:09 IVCONT 4 units/kg/hr .Q0M CHRISTINA 1.96 mls/hr Titration Protocol Per Protocol Metoprolol Succinate 50 mg 04/16/20 09:00 04/17/20 11:46 Metoprolol Succinate Er 50 Mg Tab.Er.24h PO 50 mg BID CHRISTINA Administration Protocol Omeprazole 20 mg 04/16/20 06:30 04/17/20 05:47 Omeprazole 20 Mg Capsule.Dr PO 20 mg DAILY@0630 CHRISTINA Administration Sodium Chloride 3 ml 04/16/20 02:06 04/17/20 08:37 0.9 % Sodium Chloride Flush 3 Ml Syringe IVFLUSH Not Given QSHIFT CHRISTINA Valsartan 160 mg 04/16/20 09:00 04/17/20 11:45 Valsartan 160 Mg Tablet PO 160 mg DAILY CHRISTINA Administration Time Spent With Patient Time: Total time spent is greater than 50% in coordination of care (as documented) at patient's floor/unit and/or counseling patient: Time with patient: 25 - 35 minutes
--- NOTE | 2020-04-17 14:53 | PM.DS ---
DS: Providers Provider Date of admission: 04/15/20 20:17 Primary care physician: Yuliya Summers MD Consults: 04/16/20 02:06 Consult to Cardiology Routine Consulting Provider: [facility] Cardiovascular Services Reason for consultation: NSTEMI Has provider been notified: No DS: Diagnosis Discharge Diagnosis (1) NSTEMI (non-ST elevated myocardial infarction): Status: Acute DS: Medications Discharge Medications Home Medications: Home Medications Medication Instructions Recorded Confirmed aspirin 1 tab PO DAILY 04/15/20 04/15/20 atorvastatin 1 tab PO DAILY 04/15/20 04/15/20 candesartan-hydrochlorothiazid 1 tab PO DAILY 04/15/20 04/15/20 hydralazine 1 tab PO BID 04/15/20 04/15/20 metoprolol succinate 1 tab PO BID 04/15/20 04/15/20 naproxen 1 tab PO BID 04/15/20 04/15/20 omega-3 acid ethyl esters 1 cap PO DAILY 04/15/20 04/15/20 omeprazole 1 cap PO DAILY 04/15/20 04/15/20 DS: Summary Hospital Course Hospital Course: 79-year-old female with hypertension hyperlipidemia who presented with chest pain and elevated troponin I level consistent with non ST elevation myocardial infarction. Patient was admitted for further management consisted of a aspirin intravenous heparin statin and beta-otf. Was seen by Cardiology and arrangement was made for stress test which turned out to be negative the patient has not been having any further chest pain and at this point will be discharged home and to continue her home medication including blood pressure medications aspirin and statin patient is chest pain-free at this point. Status at Discharge Functional status at discharge: independent ambulation Time Spent with Patient Time attestation: Total time spent providing and/or coordinating discharge services: Discharge coordination time: Greater than 30 minutes Physical Exam Vital Signs: Vital Signs: Last Vital Signs Temp 97.8 F 04/17/20 11:51 Pulse 64 04/17/20 11:51 Resp 18 04/17/20 11:51 BP 126/73 04/17/20 11:51 Pulse Ox 94 04/17/20 11:51 Body Mass Index 25.7 See progress note DS: Data Data Completed and Pending Labs on day of discharge: 04/15/20 ECG 12 lead EKG Stat 04/15/20 13:14 EKG Documentation DIRECTED 04/15/20 14:13 EKG Documentation DIRECTED XR chest 1V Stat 04/15/20 14:24 Aspirin 162 mg PO ONCE ONE Nitroglycerin 2 % Oint [Nitro-Bid] 0.5 inch TRANSDERMA ONCE ONE 04/15/20 14:28 Complete Blood Count Auto Diff Stat Hold Lt Blue - Possible Coag Stat Troponin-I High Sensitivity Stat 04/15/20 15:26 BMP [Basic Metabolic Panel] Stat 04/15/20 17:00 CT angio chest Stat 04/15/20 17:05 CT angio abdomen pelvis Stat 04/15/20 17:39 Acetaminophen [Tylenol] 975 mg PO ONCE ONE Morphine Sulfate 2 mg IVPUSH ONCE ONE ondansetron HCL [Zofran] 4 mg IVPUSH ONCE ONE 04/15/20 17:45 0.9 % Sodium Chloride [Ns] 1,000 ml IVCONT 999 mls/hr 04/15/20 18:08 Troponin-I High Sensitivity Stat 04/15/20 18:34 iohexoL 350 MG/ML [Omnipaque 350 MG/ML] 100 ml IV ONCE ONE 04/15/20 19:44 Atorvastatin Calcium [Lipitor] 80 mg PO ONCE ONE Clopidogrel Bisulfate [Plavix] 300 mg PO ONCE ONE 04/15/20 19:50 Heparin Sodium,Porcine 2,939 unit IVPUSH ONCE ONE 04/15/20 20:00 Heparin Sodium,Porcine/1/2NS 25,000 unit in 250 ml IVCONT Per Protocol units/kg/hr 04/15/20 20:05 PTT Heparin Drip Stat Prothrombin Time INR Stat 04/15/20 20:11 Add Laboratory Test Stat 04/15/20 20:16 Transfer Order Routine 04/15/20 20:20 Heparin Sodium,Porcine 900 unit IVPUSH ONCE ONE 04/15/20 20:27 Complete Blood Count no Diff Stat SARS-CoV2/FLU/RSV Stat 04/15/20 21:24 Consult Rx Perform Med Rec 1 each MISCELLANE ONCE PRN 04/15/20 21:38 Nitroglycerin 2 % Oint [Nitro-Bid] 0.5 inch TRANSDERMA ONCE ONE 04/16/20 CA lexiscan stress w mike Urgent 04/16/20 02:26 Flu Vacc [id number](6mos up)/PF [Fluarix Quad ] 0.5 ml IM .ONCE ONE 04/16/20 02:59 PTT Heparin Drip Stat 04/16/20 05:59 Basic Metabolic Panel Routine Complete Blood Count Auto Diff Routine Lipid Panel Stat PTT Heparin Drip Stat Prothrombin Time INR Routine Troponin-I High Sensitivity Stat 04/16/20 10:08 NM mike perf SPECT rest & str Routine 04/16/20 12:39 PTT Heparin Drip Routine 04/16/20 14:46 PTT Heparin Drip Stat 04/16/20 22:47 PTT Heparin Drip Routine 04/17/20 02:06 CA echo transthoracic complete Routine 04/17/20 05:54 PTT Heparin Drip Routine 04/17/20 08:29 Aminophylline 250 mg .ROUTE .STK-MED ONE Regadenoson [Lexiscan] 0.4 mg IV .STK-MED ONE 04/17/20 09:38 PTT Heparin Drip Stat Laboratory Last Values WBC 7.3 X10*3/uL (4.8-10.8) 04/16/20 05:59 WBC Cancelled 04/16/20 05:59 RBC 4.98 X10*6/uL (4.20-5.50) 04/16/20 05:59 RBC Cancelled 04/16/20 05:59 Hgb 15.2 g/dl (12.0-16.0) 04/16/20 05:59 Hgb Cancelled 04/16/20 05:59 Hct 46.1 % (37-47) 04/16/20 05:59 Hct Cancelled 04/16/20 05:59 MCV 92.6 fL (80-98) 04/16/20 05:59 MCV Cancelled 04/16/20 05:59 MCH 30.5 pg (27.0-33.0) 04/16/20 05:59 MCH Cancelled 04/16/20 05:59 MCHC 33.0 g/dl (31.0-35.0) 04/16/20 05:59 MCHC Cancelled 04/16/20 05:59 RDW 14.4 % (11.0-16.0) 04/16/20 05:59 RDW Cancelled 04/16/20 05:59 Plt Count 172 X10*3/uL (160-400) 04/16/20 05:59 Plt Count Cancelled 04/16/20 05:59 MPV 11.3 fL (9.4-12.3) 04/16/20 05:59 MPV Cancelled 04/16/20 05:59 Immature Gran % (Auto) 0.4 % (0.0-0.4) 04/16/20 05:59 Neut % (Auto) 55.5 % (45-73) 04/16/20 05:59 Lymph % (Auto) 28.7 % (20-40) 04/16/20 05:59 [place] % (Auto) 12.4 % (2-11) H 04/16/20 05:59 Eos % (Auto) 2.5 % (0-4) 04/16/20 05:59 Baso % (Auto) 0.5 % (0-2) 04/16/20 05:59 Lymph # (Auto) 2.1 X10*3/uL (1.2-4.9) 04/16/20 05:59 [place] # (Auto) 0.9 X10*3/uL (0.1-1.2) 04/16/20 05:59 Eos # (Auto) 0.2 X10*3/uL (0.0-0.4) 04/16/20 05:59 Baso # (Auto) 0.0 X10*3/uL (0.0-0.2) 04/16/20 05:59 Abs Immat Gran (auto) 0.03 X10*3/uL (0.00-0.03) 04/16/20 05:59 Absolute Neuts (auto) 4.1 X10*3/uL (2.0-8.3) 04/16/20 05:59 Absolute Nucleated RBC 0.000 X10*3/uL (0.0-0.012) 04/16/20 05:59 Absolute Nucleated RBC Cancelled 04/16/20 05:59 Nucleated RBC % (auto) 0.0 /100WBC (0.0-0.2) 04/16/20 05:59 Nucleated RBC % (auto) Cancelled 04/16/20 05:59 PT 11.6 SEC (10.8-13.0) 04/16/20 05:59 INR 1.0 (0.9-1.1) 04/16/20 05:59 PTT (Heparin Protocol) 60.0 SEC (53-77.9) D 04/17/20 09:38 D-Dimer Cancelled 04/16/20 14:46 Hold Blue Top SEE NOTE 04/15/20 14:28 Sodium 141 mmol/L (135-145) 04/16/20 05:59 Potassium 3.7 mmol/l (3.3-5.1) 04/16/20 05:59 Chloride 109 mmol/L (96-108) H 04/16/20 05:59 Carbon Dioxide 24 mmol/L (22-29) 04/16/20 05:59 Anion Gap 12 (-20) 04/16/20 05:59 BUN 16 mg/dL (9-16) 04/16/20 05:59 Creatinine 0.85 mg/dL (0.5-1.4) 04/16/20 05:59 Estim Creat Clear Calc 47.9 04/16/20 05:59 Estimated GFR > 60 04/16/20 05:59 Random Glucose 95 mg/dL (60-115) 04/16/20 05:59 Calcium 9.2 mg/dL (8.4-10.2) 04/16/20 05:59 Troponin I High Sens 327.1 ng/L (<3.5-17.0) H 04/16/20 05:59 Triglycerides 157 mg/dL 04/16/20 05:59 Cholesterol 162 mg/dL 04/16/20 05:59 LDL Cholesterol, Calc 96 mg/dl 04/16/20 05:59 HDL Cholesterol 35 mg/dL 04/16/20 05:59 Coronavirus (PCR) NEGATIVE (Negative) 04/15/20 20:27 Influenza Type A (PCR) NEGATIVE (Negative) 04/15/20 20:27 Influenza Type B (PCR) NEGATIVE (Negative) 04/15/20 20:27 RSV RNA Qual (PCR) NEGATIVE (Negative) 04/15/20 20:27 Discharge Plan Discharge Anticipated Discharge Date/Time: 04/17/20 14:50 Patient Disposition: Home, Self-Care Referrals: Yuliya Summers MD [Primary Care Provider] - Discharge Medications: Continued candesartan-hydrochlorothiazid 32-12.5 mg tablet 1 tab PO DAILY RF: 0 metoprolol succinate 50 mg tablet extended release 24 hr 1 tab PO BID RF: 0 hydralazine 25 mg tablet 1 tab PO BID RF: 0 aspirin 81 mg tablet,delayed release (DR/EC) 1 tab PO DAILY RF: 0 omeprazole 20 mg capsule,delayed release(DR/EC) 1 cap PO DAILY RF: 0 naproxen 500 mg tablet 1 tab PO BID RF: 0 omega-3 acid ethyl esters 1 gram capsule 1 cap PO DAILY RF: 0 No Action atorvastatin 40 mg tablet 40 mg PO DAILY 90 Days Qty: 90 RF: 1 Discharge Orders: Discharge Order (Routine); Ordered 04/17/20 Ordered By: Ko Melo Diet: advance to usual diet Activity on Discharge: As tolerated Discharge Date/Time: 04/17/20 17:10 Visit Report Forms: Patient Portal Discharge page Care Plan Goals: prevent rehoospitalization Health Concerns: no new concern at this time Plan of Treatment: Take your medication as recommended and follow up with your Doctor in a week
[2020-04-17 15:45] VITALS: BP 134/83; PULSE 68; RESP 18; TEMP 36.7; O2SAT 95
== END 2020-04-17 17:10 | disposition home or self-care (01) | DRG 282 ==
LOC: HO.ED 17:18 → HO.IMC 04-16 00:40
PROVIDERS: Internal Medicine; Admitting Provider Internal Medicine; Emergency Provider Emergency Medicine Emergency Medical Services; PCP Internal Medicine; Visit Provider Internal Medicine
DX: I21.4 Non-ST elevation (NSTEMI) myocardial infarction (principal); E78.5 Hyperlipidemia, unspecified; I12.9 Hypertensive chronic kidney disease with stage 1 through stage 4 chronic kidney disease, or unspecified chronic kidney disease; I25.10 Atherosclerotic heart disease of native coronary artery without angina pectoris; N18.9 Chronic kidney disease, unspecified; I25.2 Old myocardial infarction; Z20.828 Contact with and (suspected) exposure to other viral communicable diseases; Z79.82 Long term (current) use of aspirin; Z79.899 Other long term (current) drug therapy
CPT/HCPCS: 0241U; 36415; 71045; 71275; 74174; 78452; 80048; 80061; 84484; 85025; 85027; 85610; 85730; 93005; 93017; 93306; 96361; 96374; 96375; 99285; A9500; J0280; J2785; Q9967

== ENCOUNTER 2020-04-23 08:44 | Outpatient (REF) | payer MEDICARE, OTHER, SELFPAY ==
[2020-04-23 09:29] LABS: MANUAL DIFF FLAG NO
[2020-04-23 09:45] LABS: Basophils Absolute Auto 0.1 X10*3/uL (0.0-0.2); Basophils Percent Auto 0.8 % (0-2); Eosinophils Absolute Auto 0.2 X10*3/uL (0.0-0.4); Eosinophils Percent Auto 2.7 % (0-4); Hematocrit 50.1 % (37-47); Hemoglobin 15.4 g/dl (12.0-16.0); Imm Gran Abs Auto 0.02 X10*3/uL (0.00-0.03); Imm Gran Pct Auto 0.3 % (0.0-0.4); Lymphocytes Percent Auto 31.6 % (20-40); Mean Corpuscular HGB Conc 30.7 g/dl (31.0-35.0); Mean Corpuscular Hemoglobin 29.4 pg (27.0-33.0); Mean Corpuscular Volume 95.6 fL (80-98); Mean Platelet Volume 10.6 fL (9.4-12.3); Monocytes Absolute Auto 0.8 X10*3/uL (0.1-1.2); Monocytes Percent Auto 12.9 % (2-11); Neutrophils Absolute Auto 3.3 X10*3/uL (2.0-8.3); Neutrophils Percent Auto 51.7 % (45-73); Platelet Count 194 X10*3/uL (160-400); Red Blood Count 5.24 X10*6/uL (4.20-5.50); Red Cell Distribution Width 14.6 % (11.0-16.0); White Blood Count 6.4 X10*3/uL (4.8-10.8)
[2020-04-23 10:20] LABS: Alanine Aminotransferase 17 U/L (0-31); Alkaline Phosphatase 89 U/L (39-117); Anion Gap 11 (12-20); Aspartate Amino Transferase 19 U/L (5-31); Bilirubin Total 1.6 mg/dL (0.0-1.0); Blood Urea Nitrogen 25 mg/dL (9-16); Calcium 9.9 mg/dL (8.4-10.2); Carbon Dioxide 28 mmol/L (22-29); Chloride 107 mmol/L (96-108); Cholesterol 154 mg/dL; Estimated Glomerular Filt Rate > 60; Glucose Random 88 mg/dL (60-115); HDL Cholesterol 36 mg/dL; LDL Cholesterol Calculated 81 mg/dl; Potassium 4.2 mmol/l (3.3-5.1); Sodium 142 mmol/L (135-145); Total Protein 7.6 g/dL (6.5-8.0); Triglycerides 187 mg/dL
[2020-04-23 10:30] LABS: Thyroid Stimulating Hormone 2.46 uIU/mL (0.32-4.0)
== END 2020-04-23 08:45 | disposition home or self-care (01) ==
LOC: HO.LAB 08:44
PROVIDERS: PCP Internal Medicine; Visit Provider Internal Medicine
DX: E78.00 Pure hypercholesterolemia, unspecified (principal); F51.01 Primary insomnia; I12.9 Hypertensive chronic kidney disease with stage 1 through stage 4 chronic kidney disease, or unspecified chronic kidney disease; N18.9 Chronic kidney disease, unspecified; R73.01 Impaired fasting glucose; I21.4 Non-ST elevation (NSTEMI) myocardial infarction; I25.10 Atherosclerotic heart disease of native coronary artery without angina pectoris; E78.5 Hyperlipidemia, unspecified; Z98.890 Other specified postprocedural states
CPT/HCPCS: 36415; 80053; 80061; 84443; 85025

== ENCOUNTER 2020-07-08 08:26 | Outpatient (REF) | payer MEDICARE, MEDICAID, SELFPAY ==
--- NOTE | ~2020-07-08 | MM_ITS ---
EXAMINATION: MM SCREENING DIGITAL BREAST TOMOSYNTHESIS, BILATERAL CLINICAL INFORMATION: Screening. Asymptomatic. The lifetime risk of breast cancer based on the Tyrer-Cuzick Model is 2%. COMPARISON: Mammography: 07/30/2017, 07/15/2016 TECHNIQUE: Digital breast tomosynthesis is performed in both the craniocaudal and mediolateral oblique views along with computer-aided detection (CAD). Synthesized 2D images are generated from the tomosynthesis. FINDINGS: There are scattered areas of fibroglandular density (ACR BI-RADS breast composition Category b). There are no significant masses, abnormal calcifications, or other abnormalities. Parenchymal pattern is similar to prior studies. Skin contours are smooth. No significant changes. MM/MM tomosynthesis screening BI IMPRESSION: No mammographic evidence of malignancy. ASSESSMENT: BI-RADS 1: Negative RECOMMENDATION: Routine annual mammography screening. This patient's information was entered into a reminder system with a target due date for their next mammogram.
== END 2020-07-08 08:27 | disposition home or self-care (01) ==
LOC: HO.MAMMO 08:26
PROVIDERS: PCP Internal Medicine; Visit Provider Internal Medicine
DX: Z12.31 Encounter for screening mammogram for malignant neoplasm of breast (principal)
CPT/HCPCS: 77063; 77067

== ENCOUNTER 2020-07-30 06:24 | Outpatient (REF) | payer MEDICARE, OTHER, SELFPAY ==
[2020-07-30 07:23] LABS: Alanine Aminotransferase 12 U/L (0-31); Albumin Level 3.9 g/dL (3.5-5.0); Alkaline Phosphatase 103 U/L (39-117); Anion Gap 10 (12-20); Aspartate Amino Transferase 19 U/L (5-31); Bilirubin Total 1.1 mg/dL (0.0-1.0); Blood Urea Nitrogen 23 mg/dL (9-16); Calcium 9.8 mg/dL (8.4-10.2); Carbon Dioxide 29 mmol/L (22-29); Chloride 109 mmol/L (96-108); Cholesterol 172 mg/dL; Estimated Glomerular Filt Rate 57; Glucose Random 98 mg/dL (60-115); HDL Cholesterol 32 mg/dL; LDL Cholesterol Calculated 88 mg/dl; Potassium 4.1 mmol/L (3.3-5.1); Sodium 144 mmol/L (135-145); Total Protein 7.4 g/dL (6.5-8.0); Triglycerides 264 mg/dL
== END 2020-07-30 06:25 | disposition home or self-care (01) ==
LOC: HO.LAB 06:24
PROVIDERS: PCP Internal Medicine; Visit Provider Internal Medicine
DX: E78.00 Pure hypercholesterolemia, unspecified (principal); I10 Essential (primary) hypertension; R26.0 Ataxic gait; I21.4 Non-ST elevation (NSTEMI) myocardial infarction; I25.10 Atherosclerotic heart disease of native coronary artery without angina pectoris; I35.0 Nonrheumatic aortic (valve) stenosis; E78.5 Hyperlipidemia, unspecified; Z79.82 Long term (current) use of aspirin; Z79.899 Other long term (current) drug therapy
CPT/HCPCS: 36415; 80053; 80061; 99212

== ENCOUNTER → 2021-09-16 08:50 | Outpatient (BNVA) | payer MEDICARE, MEDICAID, SELFPAY | PROVIDERS: PCP Internal Medicine; Referring Provider Internal Medicine; Visit Provider Internal Medicine Cardiovascular Disease | DX: I25.10 Atherosclerotic heart disease of native coronary artery without angina pectoris (principal); I77.810 Thoracic aortic ectasia; I35.0 Nonrheumatic aortic (valve) stenosis; I10 Essential (primary) hypertension | CPT/HCPCS: 93005; 99212 ==

== ENCOUNTER → 2021-09-26 07:59 | Outpatient (REF) | payer MEDICARE, MEDICAID, SELFPAY ==
--- NOTE | 2021-09-26 08:05 | CA_ITS ---
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 Study Quality: Fair ECG Rhythm: Bradycardia Conclusions: - 1. Normal LV systolic function with impaired relaxation filling pattern 2. Mild aortic stenosis and regurgitation 3. Normal RV systolic pressure 4. No gross pericardial effusion 5. Mildly dilated ascending aorta at 4 cm Findings Left Ventricle Normal left ventricular size, thickness, and systolic function. The visually estimated ejection fraction is between 55-60%. Spectral Doppler is indicative of an impaired relaxation filling pattern. E/E prime ratio is between 8 and 15 consistent with indeterminate filling pressures. There is mild septal asymmetric hypertrophy. Right Ventricle Normal right ventricular cavity size and systolic function. Atria The left atrium is likely dilated. Interatrial shunt cannot be excluded. The right atrium is normal in size. Aortic Valve There is moderate calcification of the aortic valve. There is moderate thickening of the aortic valve. There is mild aortic valve stenosis. There is mild aortic valve regurgitation. Mitral Valve There is mild anterior and posterior mitral leaflet thickening. There is mild mitral annular calcification. There is trace mitral valve regurgitation. There is no mitral valve stenosis. Pulmonic Valve The pulmonic valve was not well visualized. Tricuspid Valve Likely normal tricuspid valve structure and function. The right ventricular systolic pressure is normal. The right ventricular systolic pressure is 22 mmHg. Normal right atrial pressure. There is no evidence of pulmonary hypertension. Great Vessels The pulmonary artery was not well visualized. There is mild dilatation of the ascending aorta measuring 4.00 cm. Venous The inferior vena cava is normal in size and collapses greater than 50% with inspiration. Pericardium/Pleural There is no evidence of pericardial effusion. Prior Study Comparison No significant change compared to prior study dated: 04/17/2020. Measurements 2D Linear Measurements IVSd: 0.68 0.6-0.9/0.6-1.0 cm LVIDd: 5.23 3.9-5.3/4.2-5.9 cm LVIDd Index: 3.19 2.4-3.2/2.2-3.1 cm/m2 LVIDs: 3.81 2.0-3.6 cm LVPWd: 0.85 0.7-1.1 cm LA Diam: 3.00 2.7-3.8/3.0-4.0 cm LAIDs Index: 1.83 1.5-2.3 cm/m2 LV Mass: 172.35 67-162/88-224 g LV Mass Index: 105.09 43-95/49-115 g/m2 LVOT Diam: 2.25 3.0+(-)1.3 cm 2D Volumes LA Vol: 24.40 2D Systolic Function EF 4C: 63.80 >55% EF 2C: 43.80 >55% Mitral Valve MV Pk E: 0.74 MV PK A: 1.13 MV Decel Time: 278.00 E/A: 0.70 E'Lateral: 3.81 E'Medial: 3.59 E/E' Med: 20.60 E/E' Lat: 19.40 PHT: 81.00 MVA PHT: 2.72 Decel [place]: 2.66 Aortic Valve AoV Pk Deepak: 1.87 AoV Mn Deepak: 1.21 AoV VTI: 0.40 AoV Pk Grad: 19.00 Aov Mn Grad: 6.80 ELEANOR Cont.VTI: 1.40 LVOT LVOT Pk Deepak: 0.87 LVOT Mn Deepak: 0.64 LVOT VTI: 0.19 LVOT Pk Grad: 3.00 LVOT Mn Grad: 2.00 LVOT Diam: 2.25 LVOT Area: 3.46 Diastolic Function MV Pk E: 0.74 MV Pk A: 1.13 E/A: 0.70 E'Medial: 3.59 E/E' Med: 20.60 E' Laterial: 3.81 E/E' Lat: 19.40 Right Ventricle TAPSE (mm): 14.30 TVS' Deepak: 7.62 Tricuspid Valve TR Pk Deepak: 2.20 TR Pk Grad: 19.00 RA Press: 3.00 RVSP: 22.00 Great Vessels Aorta Sinus of Valsalva: 3.35 2.0-3.[address] [place]: 3.60 1.7-3.4 cm Ao Asc: 4.00 2.1-3.4 cm Pulmonary Valve PV Pk Deepak: 0.63 Peak PV Grad: 2.00 Updated in Other Vendor System with Status of Final Abdirashid Fritz MD electronically signed on 09/27/2021 2:41:09 PM with status of Final
== END ==
LOC: HO.CARD 07:59
PROVIDERS: PCP Internal Medicine; Visit Provider Internal Medicine
DX: I25.10 Atherosclerotic heart disease of native coronary artery without angina pectoris (principal); I35.0 Nonrheumatic aortic (valve) stenosis
CPT/HCPCS: 93306

== ENCOUNTER 2021-11-24 06:22 | Outpatient (REF) | payer MEDICARE, MEDICAID, SELFPAY ==
[2021-11-24 06:52] LABS: MANUAL DIFF FLAG NO
[2021-11-24 08:05] LABS: Basophils Percent Auto 0.4 % (0-2); Eosinophils Absolute Auto 0.2 X10*3/uL (0.0-0.4); Eosinophils Percent Auto 2.7 % (0-4); Hematocrit 49.2 % (37.0-47.0); Hemoglobin 15.7 g/dl (12.0-16.0); Imm Gran Abs Auto 0.02 X10*3/uL (0.00-0.03); Imm Gran Pct Auto 0.3 % (0.0-0.4); Lymphocytes Absolute Auto 2.4 X10*3/uL (1.2-4.9); Mean Corpuscular HGB Conc 31.9 g/dl (31.0-35.0); Mean Corpuscular Hemoglobin 30.8 pg (27.0-33.0); Mean Corpuscular Volume 96.5 fL (80.0-98.0); Mean Platelet Volume 10.9 fL (9.4-12.3); Monocytes Absolute Auto 0.8 X10*3/uL (0.1-1.2); Monocytes Percent Auto 10.8 % (2-11); Neutrophils Percent Auto 53.8 % (45-73); Platelet Count 195 X10*3/uL (160-400); Red Cell Distribution Width 14.7 % (11.0-16.0); White Blood Count 7.4 X10*3/uL (4.8-10.8)
[2021-11-24 08:49] LABS: Thyroid Stimulating Hormone 2.46 uIU/mL (0.32-4.0); Vitamin D 25-OH Total 26.3 ng/mL (>30)
[2021-11-24 08:50] LABS: Alanine Aminotransferase 14 U/L (0-31); Albumin Level 4.2 g/dL (3.5-5.0); Alkaline Phosphatase 102 U/L (39-117); Anion Gap 12 (12-20); Aspartate Amino Transferase 20 U/L (5-31); Bilirubin Total 1.1 mg/dL (0.0-1.0); Blood Urea Nitrogen 25 mg/dL (9-16); Calcium 10.5 mg/dL (8.4-10.2); Carbon Dioxide 28 mmol/L (22-29); Chloride 107 mmol/L (96-108); Cholesterol 168 mg/dL; Estimated Glomerular Filt Rate 51; Glucose Random 89 mg/dL (60-115); HDL Cholesterol 34 mg/dL; LDL Cholesterol Calculated 99 mg/dl; Potassium 4.5 mmol/L (3.3-5.1); Sodium 142 mmol/L (135-145); Total Protein 7.8 g/dL (6.5-8.0); Triglycerides 175 mg/dL
[2021-11-24 11:15] LABS: Vitamin B12 220 pg/mL (200-900)
== END 2021-11-24 06:23 | disposition home or self-care (01) ==
LOC: HO.LAB 06:22
PROVIDERS: PCP Internal Medicine; Visit Provider Internal Medicine
DX: E78.00 Pure hypercholesterolemia, unspecified (principal); I10 Essential (primary) hypertension
CPT/HCPCS: 36415; 80053; 80061; 82306; 82607; 84443; 85025

== ENCOUNTER 2023-01-09 01:50 | Emergency (ER) | payer MEDICARE, SELFPAY ==
[2023-01-09] VITALS (7 sets, daily range): BP systolic 155–220; BP diastolic 80–107; PULSE 53–63; RESP 16–20; TEMP 36.6–36.8; O2SAT 95; BMI 25.6
--- NOTE | 2023-01-09 | ECG_ITS ---
Test Reason : CHEST PAIN Blood Pressure : / mmHG Vent. Rate : 064 BPM Atrial Rate : 064 BPM P-R Int : 232 ms QRS Dur : 084 ms QT Int : 424 ms P-R-T Axes : 043 008 028 degrees QTc Int : 437 ms Sinus rhythm with 1st degree A-V block Otherwise normal ECG When compared with ECG of 15-APR-2020 13:19, Heart rate has increased Referred By: Bruno Madrigal Electronically Signed By:ADIS CLAY
--- NOTE | ~2023-01-09 | XR_ITS ---
EXAMINATION: XR CHEST CLINICAL INFORMATION: Acute chest pain COMPARISON: 04/15/2020 TECHNIQUE: 2 views of the chest were obtained. FINDINGS: The lungs are clear with no focal consolidation. No evidence of pneumothorax, pulmonary edema, or pleural effusions. Cardiac silhouette appears near the upper limits of normal in size. Calcification is present at the aortic arch. No acute osseous findings are seen. XR/XR chest 2V IMPRESSION: No acute cardiopulmonary findings.
[2023-01-09 02:20] LABS: MANUAL DIFF FLAG NO
[2023-01-09 02:21] LABS: Basophils Absolute Auto 0.1 X10*3/uL (0.0-0.2); Basophils Percent Auto 0.7 % (0-2); Eosinophils Absolute Auto 0.2 X10*3/uL (0.0-0.4); Eosinophils Percent Auto 2.4 % (0-4); Hematocrit 47.1 % (37.0-47.0); Hemoglobin 15.1 g/dl (12.0-16.0); Imm Gran Abs Auto 0.02 X10*3/uL (0.00-0.03); Imm Gran Pct Auto 0.3 % (0.0-0.4); Lymphocytes Absolute Auto 2.7 X10*3/uL (1.2-4.9); Lymphocytes Percent Auto 36.1 % (20-40); Mean Corpuscular HGB Conc 32.1 g/dl (31.0-35.0); Mean Corpuscular Hemoglobin 30.8 pg (27.0-33.0); Mean Corpuscular Volume 96.1 fL (80.0-98.0); Mean Platelet Volume 10.7 fL (9.4-12.3); Monocytes Absolute Auto 0.9 X10*3/uL (0.1-1.2); Monocytes Percent Auto 12.2 % (2-11); Neutrophils Absolute Auto 3.6 x10*3/uL (2.0-8.3); Neutrophils Percent Auto 48.3 % (45-73); Platelet Count 157 X10*3/uL (160-400); Red Cell Distribution Width 14.5 % (11.0-16.0); White Blood Count 7.4 X10*3/uL (4.8-10.8)
[2023-01-09 02:35] LABS: Anion Gap 12 (12-20); Blood Urea Nitrogen 24 mg/dL (9-16); Calcium 10.5 mg/dL (8.4-10.2); Carbon Dioxide 25 mmol/L (22-29); Chloride 109 mmol/L (96-108); Creatinine Clr Calc Pharmacy 41.1; Estimated Glomerular Filt Rate 57; Glucose Random 109 mg/dL (60-115); Potassium 3.9 mmol/L (3.3-5.1); Sodium 142 mmol/L (135-145)
--- NOTE | 2023-01-09 02:37 | MHC.EDTECH ---
Patient came in from the waiting area, patient was changed into hospital attire, and placed on the playground monitor,vitals taken and are 185/90,RN is aware ,
[2023-01-09] MEDS: Metoprolol Tartrate 25 MG TABLET PO (03:06)
--- NOTE | 2023-01-09 03:49 | ED_ITS ---
HPI - Chest Pain General Chief Complaint: Chest Pain Stated Complaint: chest pain, high blood pressure Time Seen by Provider: 01/09/23 03:42 Source: patient and family Mode of arrival: ambulatory Limitations: no limitations History of Present Illness HPI narrative: 82-year-old female with history of coronary artery disease presents with chest pain. Chest pain started approximately 10:00 a.m. at night. Chest pain is burning in nature. Is in the upper chest. The pain does not radiate. Is not associated with exertion. She denies any shortness of breath, palpitations, lightheadedness, nausea vomiting. Her current pain level is a 5/10. The pain is intermittent. Patient does have a history of gastroesophageal reflux for which he takes omeprazole. She has been compliant with her medication. Related Data Home Medications Medication Instructions Recorded Confirmed candesartan 32 1 tab PO DAILY 04/15/20 09/16/21 mg-hydrochlorothiazide 12.5 mg tablet omega-3 acid ethyl esters 1 gram 1 cap PO DAILY 04/15/20 09/16/21 capsule aspirin 81 mg tablet,delayed 81 mg PO DAILY 09/16/21 09/16/21 release hydralazine 25 mg tablet 25 mg PO BID 09/16/21 09/16/21 metoprolol succinate 50 mg 50 mg PO BID 09/16/21 09/16/21 tablet,extended release 24 hr naproxen 500 mg tablet 500 mg PO BID PRN 09/16/21 09/16/21 omeprazole 20 mg capsule,delayed 20 mg PO DAILY 09/16/21 09/16/21 release Previous Rx's Medication Instructions Recorded atorvastatin 40 mg tablet 40 mg PO DAILY 90 days #90 tabs 09/16/21 omeprazole 40 mg capsule,delayed 40 mg PO DAILY #20 caps 01/09/23 release Allergies Allergy/AdvReac Type Severity Reaction Status Date / Time No Known Allergies Allergy Verified 01/09/23 02:16 [No Known Allergies*] Review of Systems Review of Systems: CONSTITUTIONAL: Denies weight loss, fever and chills. HEENT: Denies changes in vision and hearing. RESPIRATORY: Denies SOB and cough. CV: Denies palpitations + CP. GI: Denies abdominal pain, nausea, vomiting and diarrhea. : Denies dysuria and urinary frequency. MSK: Denies myalgia and joint pain. SKIN: Denies rash and pruritus. NEUROLOGICAL: Denies headache and syncope. PSYCHIATRIC: Denies recent changes in mood. Denies anxiety and depression. All other ROS are negative unless in HPI PMFSH Past Medical History Medical History Aortic stenosis Ascending aorta dilatation CAD (coronary artery disease) Hyperlipidemia Hypertension Surgical History Hx of cardiac cath (~01/2017) Family History Family History Father No problems noted. Mother No problems noted. Social History Social History Household Members: Children Housing: House Do you presently have visiting nurse or other home services: No Alcohol intake: former Patient Tobacco Use Status: Never used Tobacco Smoked in Last 30 Days: No Second Hand Smoke Exposure: No Use of substances other than those prescribed or required for medical reasons: No Advance Directives: Yes Advance Directives on File: Yes Advance Directives Date on File: 04/15/20 service: No Current occupational status: disabled Physical Exam Vital Signs: Vital Signs: Last Vital Signs Temp 98.0 F 01/09/23 04:14 Pulse 53 01/09/23 04:14 Resp 20 01/09/23 04:14 BP 180/91 H 01/09/23 04:14 Pulse Ox 95 01/09/23 04:14 O2 Del Method Room Air 01/09/23 04:14 BMI result Body Mass Index 25.6 GEN: Well developed, no acute distress, alert, oriented HEENT: Normocephalic, atraumatic, normal external ears, nose appears normal, no oropharyngeal edema or exudates Eyes: Normal to appearance Neck: Supple, no lymphadenopathy Respiratory: Talks in complete sentences, no respiratory distress, clear to auscultation bilaterally Cardiovascular: Regular rate and rhythm, no murmurs rubs or gallops Abdomen: Soft, nontender, nondistended, no guarding, no rebound Back: No CVA tenderness Extremities: No clubbing cyanosis or edema Neurologic: No focal neurologic deficits, cranial nerves 2-12 intact, strength is 5/5 bilaterally Skin: No rash Course Reevaluation(s) Reevaluation #1: Patient has some recurrent burning chest discomfort. Repeat EKG shows no significant changes. Sinus rhythm, first-degree AV block, nonspecific T-wave ch anges, no acute ST elevations depressions. Will try Maalox. Patient's blood pressure is elevated once again. Will consider further intervention. Time: 04:31 Reevaluation #2: Patient is feeling better after Maalox. Two sets of cardiac enzymes are negative. Repeat EKG shows no dynamic changes. This is not appear to be car diac in nature. Will discharge the patient on famotidine at night, omeprazole in the morning and Maalox as needed. However, should the symptoms per get progressively worse, recommending re-evaluation in the emergency department. Otherwise, patient will follow up with primary care provider sash maker on Wednesday or Wednesday. Time: 05:29 Medications Administered Discontinued Medications Generic Name Dose Route Start Last Admin Trade Name Freq PRN Reason Stop Dose Admin Al Hydroxide/Mg Hydroxide 30 ml 01/09/23 04:22 01/09/23 04:54 Magnesium Hydrox/Alum Hydrox 30 Ml Oral.Susp PO 01/09/23 04:23 30 ml ONCE ONE Administration Metoprolol Tartrate 25 mg 01/09/23 02:58 01/09/23 03:06 Metoprolol Tartrate 25 Mg Tablet PO 01/09/23 02:59 25 mg ONCE ONE Administration Protocol Medical Decision Making Medical Decision Making [facility] Narrative: 82-year-old female with coronary artery disease, hypertension presents with burning chest pain. Examination is benign. Pulses are equal bilaterally. Her cardiac exam reveals a mild systolic murmur. There is no lower extremity edema. Lungs are clear to auscultation bilateral. EKG shows no acute ischemia. Will order cardiac enzymes x2. Will order chest x-ray to rule out acute cardiopulmonary disease. DD: Atypical chest pain, musculoskeletal chest pain, chest wall pain, myocardial infarction, pericarditis, myocarditis, anxiety, stress, reflux, pneumonia, pulmonary embolus, dissection Differential Diagnosis Differential Diagnoses: The differential diagnosis associated with the presentation includes (See above) Admission/Observation Consideration of admission/observation: Escalation of care including admis letty/observation considered Lab Data [facility] Lab Attestation statement: I reviewed the patient's lab results. 01/09/23 02:15 01/09/23 02:15 Labs: Lab Results 01/09/23 01/09/23 01/09/23 Range/Units 02:15 02:15 02:15 WBC 7.4 (4.8-10.8) X10*3/uL RBC 4.90 (4.20-5.50) X10*6/uL Hgb 15.1 (12.0-16.0) g/dl Hct 47.1 H (37.0-47.0) % MCV 96.1 (80.0-98.0) fL MCH 30.8 (27.0-33.0) pg MCHC 32.1 (31.0-35.0) g/dl RDW 14.5 (11.0-16.0) % Plt Count 157 L (160-400) X10*3/uL MPV 10.7 (9.4-12.3) fL Immature Gran % (Auto) 0.3 (0.0-0.4) % Neut % (Auto) 48.3 (45-73) % Lymph % (Auto) 36.1 (20-40) % Maverick % (Auto) 12.2 H (2-11) % Eos % (Auto) 2.4 (0-4) % Baso % (Auto) 0.7 (0-2) % Lymph # (Auto) 2.7 (1.2-4.9) X10*3/uL Maverick # (Auto) 0.9 (0.1-1.2) X10*3/uL Eos # (Auto) 0.2 (0.0-0.4) X10*3/uL Baso # (Auto) 0.1 (0.0-0.2) X10*3/uL Abs Immat Gran (auto) 0.02 (0.00-0.03) X10*3/uL Absolute Neuts (auto) 3.6 (2.0-8.3) x10*3/uL Absolute Nucleated RBC 0.000 (0.0-0.012) X10*3/uL Nucleated RBC % (auto) 0.0 (0.0-0.2) /100WBC Sodium 142 (135-145) mmol/L Potassium 3.9 (3.3-5.1) mmol/L Chloride 109 H (96-108) mmol/L Carbon Dioxide 25 (22-29) mmol/L Anion Gap 12 (12-20) BUN 24 H (9-16) mg/dL Creatinine 0.94 (0.5-1.4) mg/dL Estim Creat Clear Calc 41.1 Estimated GFR 57 Random Glucose 109 (60-115) mg/dL Calcium 10.5 H (8.4-10.2) mg/dL Troponin I High Sens 6.0 (<3.5-17.0) ng/L 01/09/23 Range/Units 04:19 WBC (4.8-10.8) X10*3/uL RBC (4.20-5.50) X10*6/uL Hgb (12.0-16.0) g/dl Hct (37.0-47.0) % MCV (80.0-98.0) fL MCH (27.0-33.0) pg MCHC (31.0-35.0) g/dl RDW (11.0-16.0) % Plt Count (160-400) X10*3/uL MPV (9.4-12.3) fL Immature Gran % (Auto) (0.0-0.4) % Neut % (Auto) (45-73) % Lymph % (Auto) (20-40) % Maverick % (Auto) (2-11) % Eos % (Auto) (0-4) % Baso % (Auto) (0-2) % Lymph # (Auto) (1.2-4.9) X10*3/uL Maverick # (Auto) (0.1-1.2) X10*3/uL Eos # (Auto) (0.0-0.4) X10*3/uL Baso # (Auto) (0.0-0.2) X10*3/uL Abs Immat Gran (auto) (0.00-0.03) X10*3/uL Absolute Neuts (auto) (2.0-8.3) x10*3/uL Absolute Nucleated RBC (0.0-0.012) X10*3/uL Nucleated RBC % (auto) (0.0-0.2) /100WBC Sodium (135-145) mmol/L Potassium (3.3-5.1) mmol/L Chloride (96-108) mmol/L Carbon Dioxide (22-29) mmol/L Anion Gap (12-20) BUN (9-16) mg/dL Creatinine (0.5-1.4) mg/dL Estim Creat Clear Calc Estimated GFR Random Glucose (60-115) mg/dL Calcium (8.4-10.2) mg/dL Troponin I High Sens 5.7 (<3.5-17.0) ng/L Independent Interpretation I performed an independent interpretation of an: EKG (Normal sinus rhythm heart rate 64, first-degree AV block, no acute ST elevations depressions, nonspecific T-wave changes.) and Plain X-Ray (Chest: No acute cardiopulmonary disease) Independent Historian Clinical information obtained from an independent historian. History obtained from or confirmed by: Other (Family) Prescription Management I considered prescription management with: Pain Medication Discharge Plan Discharge Clinical Impression: Chest pain Patient Disposition: Home, Self-Care Instructions: Chest Pain (ED), Gastroesophageal Reflux Disease (ED), Esophagitis (ED) Prescriptions: New omeprazole 40 mg capsule,delayed release(DR/EC) 40 mg PO DAILY Qty: 20 0RF No Action candesartan-hydrochlorothiazid 32-12.5 mg tablet 1 tab PO DAILY omega-3 acid ethyl esters 1 gram capsule 1 cap PO DAILY naproxen 500 mg tablet 500 mg PO BID PRN omeprazole 20 mg capsule,delayed release(DR/EC) 20 mg PO DAILY hydralazine 25 mg tablet 25 mg PO BID aspirin 81 mg tablet,delayed release (DR/EC) 81 mg PO DAILY metoprolol succinate 50 mg tablet extended release 24 hr 50 mg PO BID atorvastatin 40 mg tablet 40 mg PO DAILY 90 Days Qty: 90 3RF Referrals: Yuliya Summers MD [Primary Care Provider] - 2 days Print Language: Welsh
--- NOTE | 2023-01-09 04:08 | ECG_ITS ---
Test Reason : CP Blood Pressure : / mmHG Vent. Rate : 054 BPM Atrial Rate : 054 BPM P-R Int : 248 ms QRS Dur : 082 ms QT Int : 442 ms P-R-T Axes : 058 019 035 degrees QTc Int : 419 ms Sinus bradycardia with 1st degree A-V block Nonspecific ST and T wave abnormality Abnormal ECG When compared with ECG of 10-JAN-2020 02:00, No significant change was found Referred By: Bruno Madrigal Electronically Signed By:ADIS CLAY
--- NOTE | 2023-01-09 04:15 | MHC.EDTECH ---
Hourly rounds and vitals completed,BP is 180/91 RN aware. Patient made this tech aware of having chest pain at this time, RN Liv and were made aware and repeat EKG was ordered and completed ,second trop was collected and sent to lab.
[2023-01-09 04:42] LABS: Troponin-I High Sensitivity 5.7 ng/L (<3.5-17.0)
[2023-01-09] MEDS: Magnesium Hydrox/Alum Hydrox 30 ML ORAL.SUSP PO (04:54)
--- NOTE | 2023-01-09 05:29 | MHC.EDTECH ---
Hourly rounds and vitals completed, patient is resting comfortably at this time and call palafox is within reach.
== END 2023-01-09 05:58 | disposition home or self-care (01) ==
PROVIDERS: Emergency Provider Emergency Medicine; PCP Internal Medicine
DX: R07.9 Chest pain, unspecified (principal); I10 Essential (primary) hypertension; E78.5 Hyperlipidemia, unspecified; Z79.82 Long term (current) use of aspirin; Z79.899 Other long term (current) drug therapy
CPT/HCPCS: 36415; 71046; 80048; 84484; 85025; 93005; 99283; 99285

== ENCOUNTER 2023-06-25 16:00 | Emergency (ER) | payer MEDICARE, SELFPAY ==
--- NOTE | ~2023-06-25 | US_ITS ---
EXAMINATION: US VENOUS ULTRASOUND WITH DOPPLER LOWER EXTREMITY, RIGHT CLINICAL INFORMATION: Right lower extremity pain. COMPARISON: None available. TECHNIQUE: Ultrasound of the deep veins is performed from the hip to the calf with compression sonography and color and pulse Doppler assessment. Spectral analysis with color-flow imaging is performed. FINDINGS: There is normal venous compression and respiratory variation and augmented flow. The visualized common femoral vein, superficial femoral vein, profunda femoral vein, popliteal vein, and the trifurcation region shows no evidence of deep venous thrombosis. There is no significant popliteal fossa cyst. If the patient's symptoms persist, followup ultrasound in 5 days 7 days might be of value to exclude proximal propagation from a non-visualized calf vein. US/US venous duplex LE RT IMPRESSION: No DVT demonstrated in the right lower extremity.
--- NOTE | ~2023-06-25 | XR_ITS ---
EXAMINATION: XR ANKLE, RIGHT CLINICAL INFORMATION: Pain medial malleolus. COMPARISON: None available. TECHNIQUE: AP, lateral, and mortise views of the right ankle. FINDINGS: There is a large calcaneal heel and a small to moderate size retrocalcaneal enthesophyte. Ankle mortise and subtalar joints are normal. No visible acute fracture, dislocation or subluxation seen. XR/XR ankle RT min 3V IMPRESSION: Large calcaneal heel and small to moderate size retrocalcaneal enthesophytes. No visible acute fracture or dislocation seen.
[2023-06-25 16:20] VITALS: BP 119/65; PULSE 95; RESP 18; TEMP 36.4; O2SAT 92; BMI 25.2
--- NOTE | 2023-06-25 16:20 | ED_ITS ---
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 I do note the remaining triage note. Related Data Home Medications Medication Instructions Recorded Confirmed candesartan 32 1 tab PO DAILY 04/15/20 09/16/21 mg-hydrochlorothiazide 12.5 mg tablet omega-3 acid ethyl esters 1 gram 1 cap PO DAILY 04/15/20 09/16/21 capsule aspirin 81 mg tablet,delayed 81 mg PO DAILY 09/16/21 09/16/21 release hydralazine 25 mg tablet 25 mg PO BID 09/16/21 09/16/21 metoprolol succinate 50 mg 50 mg PO BID 09/16/21 09/16/21 tablet,extended release 24 hr naproxen 500 mg tablet 500 mg PO BID PRN 09/16/21 09/16/21 omeprazole 20 mg capsule,delayed 20 mg PO DAILY 09/16/21 09/16/21 release Previous Rx's Medication Instructions Recorded atorvastatin 40 mg tablet 40 mg PO DAILY 90 days #90 tabs 09/16/21 omeprazole 40 mg capsule,delayed 40 mg PO DAILY #20 caps 01/09/23 release Allergies Allergy/AdvReac Type Severity Reaction Status Date / Time No Known Allergies Allergy Verified 06/25/23 16:24 [No Known Allergies*] Review of Systems 2 Review of Systems: Pertinent positives and negatives as stated in HPI [facility] Past Medical History Source: nursing notes reviewed Medical History Ascending aorta dilatation Aortic stenosis CAD (coronary artery disease) Hyperlipidemia Hypertension Surgical History Hx of cardiac cath (~01/2017) Family History Family History Father No problems noted. Mother No problems noted. Social History Social History Household Members: Children Housing: House Do you presently have visiting nurse or other home services: No Alcohol intake: former Patient Tobacco Use Status: Never used Tobacco Smoked in Last 30 Days: No Second Hand Smoke Exposure: No Use of substances other than those prescribed or required for medical reasons: No Advance Directives: Yes Advance Directives on File: Yes Advance Directives Date on File: 04/15/20 service: No Current occupational status: disabled Physical Exam 2 Vital Signs: Vital Signs: Last Vital Signs Temp 97.6 F 06/25/23 16:20 Pulse 90 06/25/23 18:54 Resp 18 06/25/23 18:54 BP 165/85 H 06/25/23 18:54 Pulse Ox 94 06/25/23 18:54 O2 Del Method Room Air 06/25/23 16:20 BMI result Body Mass Index 25.2 VITAL SIGNS: Reviewed. GENERAL: Well developed, well nourished, in no acute distress. HEAD: Normocephalic/atraumatic EYES: PERRLA, EOMI EARS: Ext canals without abnormality NOSE: Nares patent bilateral OROPHARYNX: no oral lesions noted, posterior pharynx clear NECK: Supple, no adenopathy LUNGS: Normal breath sounds. No adventitious sounds or accessory muscle use. SpO2<94> CARDIOVASCULAR: Regular rate and rhythm without noted murmurs, no JVD or lower extremity edema. ABDOMEN: Soft, non-tender, non-distended with bowel sounds. MUSCULOSKELETAL: No tenderness, deformities, or effusions noted on gross inspection. EXTREMITIES: No cyanosis, clubbing or edema. RIGHT ANKLE: There is no obvious deformity, no warmth/erythema/induration and it is otherwise neurovascularly intact SKIN: Inspection of the skin reveals no rashes NEUROLOGIC: Alert and oriented x 4. Strength and sensation to light touch were grossly intact x 4. Course Course Course Narrative: This is an RME: Additional HPI, ROS, PE not included below will be deferred to primary provider. Patient is an 82-year-old female presents for evaluation. 3 days ago she was experiencing chest pain and shortness of breath that last a few minutes, did not have evaluation for this. This morning she woke with pain in the right lower extremity localized to the medial malleolus into the heel and foot. Pain is worse while weight-bearing, feels as though she is unable to walk. Denies any precipitating injury. States that it is not particularly worse if she is walking barefoot. Denies any history of DVT/PE, coagulation disorders. Plan: Labs, XR/US Medical Decision Making Medical Decision Making [facility] Narrative: 82-year-old female with history and clinical presentation, DDX: Gout, fracture, arthritis 2020: I reviewed all investigations and hematologic indices are grossly within normal limits without any noted derangements. Coagulation studies are within normal limits. Chemistry indices not significant for LAURA or electrolyte/liver enzyme derangements, high sensitivity troponin is 5.3 which is chronically stable for this patient. She is no longer having any chest discomfort and x-ray the right ankle negative for fracture/dislocation and no clinical evidence to suggest suggest infection or gout. Ultrasound for DVT was interpreted by me as the official read has not been entered in yet and there does not appear to be any evidence to suggest DVT in the right lower extremity. I discussed all findings and results with the patient and her daughter at bedside, I applied an Avelino wrap to the right ankle. She will be instructed to follow-up with her primary care doctor. Differential Diagnosis Differential Diagnoses: The differential diagnosis associated with the presentation includes Please see the discussion above Admission/Observation Consideration of admission/observation: Escalation of care including admission/observation considered Please see the discussion above Lab Data [facility] Lab Attestation statement: I reviewed the patient's lab results. Please see the discussion above 06/25/23 16:59 06/25/23 16:59 Labs: Lab Results 06/25/23 06/25/23 Range/Units 16:59 19:10 WBC 8.9 (4.8-10.8) X10*3/uL RBC 4.84 (4.20-5.50) X10*6/uL Hgb 14.6 (12.0-16.0) g/dl Hct 45.6 (37.0-47.0) % MCV 94.2 (80.0-98.0) fL MCH 30.2 (27.0-33.0) pg MCHC 32.0 (31.0-35.0) g/dl RDW 14.4 (11.0-16.0) % Plt Count 207 D (160-400) X10*3/uL MPV 10.0 (9.4-12.3) fL Immature Gran % (Auto) 0.3 (0.0-0.4) % Neut % (Auto) 71.9 (45-73) % Lymph % (Auto) 20.7 (20-40) % Bacon % (Auto) 6.8 (2-11) % Eos % (Auto) 0.0 (0-4) % Baso % (Auto) 0.3 (0-2) % Lymph # (Auto) 1.9 (1.2-4.9) X10*3/uL Bacon # (Auto) 0.6 (0.1-1.2) X10*3/uL Eos # (Auto) 0.0 (0.0-0.4) X10*3/uL Baso # (Auto) 0.0 (0.0-0.2) X10*3/uL Abs Immat Gran (auto) 0.03 (0.00-0.03) X10*3/uL Absolute Neuts (auto) 6.4 (2.0-8.3) x10*3/uL Absolute Nucleated RBC 0.000 (0.0-0.012) X10*3/uL Nucleated RBC % (auto) 0.0 (0.0-0.2) /100WBC PT 11.5 (11.1-13.3) SEC INR 0.9 (0.9-1.1) Sodium 143 (135-145) mmol/L Potassium 3.6 (3.3-5.1) mmol/L Chloride 108 (96-108) mmol/L Carbon Dioxide 26 (22-29) mmol/L Anion Gap 13 (12-20) BUN 27 H (9-16) mg/dL Creatinine 1.04 (0.5-1.4) mg/dL Estim Creat Clear Calc 38.3 Estimated GFR 51 Random Glucose 154 H (60-115) mg/dL Calcium 10.2 (8.4-10.2) mg/dL Total Bilirubin 0.7 (0.0-1.0) mg/dL AST 23 (5-31) U/L ALT 17 (0-31) U/L Alkaline Phosphatase 90 (39-117) U/L Troponin I High Sens 5.3 (<3.5-17.0) ng/L Total Protein 8.1 H (6.5-8.0) g/dL Albumin 3.8 (3.5-5.0) g/dL Independent Interpretation I performed an independent interpretation of an: EKG Interpretation: Normal sinus rhythm, HR-78, no STEMI, MI/QRS/QTC is within normal limits. Radiology Impression Discussion of test interpretation with radiology: I have reviewed the radiologist's reading. Radiologist Impression: Please see the discussion above External Record Review External record reviewed: Outpatient record, Prior outpatient labs and Prior outpatient radiology Chronic Conditions Patient?s care impacted by: Hypertension Critical Care Time Critical Care Time Critical Care Time: Yes Total Critical Care Time: 30 Attestation: I personally attest to this time spent taking care of the patient. Discharge Plan Discharge Clinical Impression: Ankle pain, Atypical chest pain Patient Disposition: Home, Self-Care Instructions: Arthralgia (ED) Additional Instructions: 1. Reanudar todos los medicamentos caseros seg?n lo recetado. 2. Recomiende Tylenol/ibuprofeno de venta yash seg?n sea necesario para el dolor de tobillo. Se recomienda mantener Avelino Wrap lucinda las pr?ximas 24 a 48 horas. 3. Rnada un seguimiento con hamilton m?dico de atenci?n primaria en los pr?ximos d?as de la pr?xima semana. Regrese a la diaz de emergencias si los s?ntomas empeoran. 1. Resume all home medications as prescribed. 2. Recommend [id number] Tylenol/ibuprofen as needed for ankle pain. Recommend keeping the Avelino wrap on for the next 24-48 hours. 3. Please follow-up with your primary care doctor in the next couple of days of next week. Return to the ER for any worsening symptoms Prescriptions: No Action candesartan-hydrochlorothiazid 32-12.5 mg tablet 1 tab PO DAILY omega-3 acid ethyl esters 1 gram capsule 1 cap PO DAILY naproxen 500 mg tablet 500 mg PO BID PRN omeprazole 20 mg capsule,delayed release(DR/EC) 20 mg PO DAILY hydralazine 25 mg tablet 25 mg PO BID aspirin 81 mg tablet,delayed release (DR/EC) 81 mg PO DAILY metoprolol succinate 50 mg tablet extended release 24 hr 50 mg PO BID omeprazole 40 mg capsule,delayed release(DR/EC) 40 mg PO DAILY Qty: 20 0RF atorvastatin 40 mg tablet 40 mg PO DAILY 90 Days Qty: 90 3RF Referrals: Yuliya Summers MD [Primary Care Provider] - Print Language: Ivorian
[2023-06-25 17:03] LABS: MANUAL DIFF FLAG NO
[2023-06-25 17:06] LABS: Basophils Percent Auto 0.3 % (0-2); Hematocrit 45.6 % (37.0-47.0); Hemoglobin 14.6 g/dl (12.0-16.0); Imm Gran Abs Auto 0.03 X10*3/uL (0.00-0.03); Imm Gran Pct Auto 0.3 % (0.0-0.4); Lymphocytes Absolute Auto 1.9 X10*3/uL (1.2-4.9); Lymphocytes Percent Auto 20.7 % (20-40); Mean Corpuscular Hemoglobin 30.2 pg (27.0-33.0); Mean Corpuscular Volume 94.2 fL (80.0-98.0); Monocytes Absolute Auto 0.6 X10*3/uL (0.1-1.2); Monocytes Percent Auto 6.8 % (2-11); Neutrophils Absolute Auto 6.4 x10*3/uL (2.0-8.3); Neutrophils Percent Auto 71.9 % (45-73); Platelet Count 207 X10*3/uL (160-400); Red Blood Count 4.84 X10*6/uL (4.20-5.50); Red Cell Distribution Width 14.4 % (11.0-16.0); White Blood Count 8.9 X10*3/uL (4.8-10.8)
[2023-06-25 17:13] LABS: INTERNATIONAL NORM RATIO 0.9 (0.9-1.1); Prothrombin Time 11.5 SEC (11.1-13.3)
[2023-06-25 17:18] LABS: Alanine Aminotransferase 17 U/L (0-31); Albumin Level 3.8 g/dL (3.5-5.0); Alkaline Phosphatase 90 U/L (39-117); Anion Gap 13 (12-20); Aspartate Amino Transferase 23 U/L (5-31); Bilirubin Total 0.7 mg/dL (0.0-1.0); Blood Urea Nitrogen 27 mg/dL (9-16); Calcium 10.2 mg/dL (8.4-10.2); Carbon Dioxide 26 mmol/L (22-29); Chloride 108 mmol/L (96-108); Creatinine Clr Calc Pharmacy 38.3; Estimated Glomerular Filt Rate 51; Glucose Random 154 mg/dL (60-115); Potassium 3.6 mmol/L (3.3-5.1); Sodium 143 mmol/L (135-145); Total Protein 8.1 g/dL (6.5-8.0)
--- NOTE | 2023-06-25 18:47 | ECG_ITS ---
Test Reason : CHEST PAIN Blood Pressure : / mmHG Vent. Rate : 078 BPM Atrial Rate : 078 BPM P-R Int : 208 ms QRS Dur : 086 ms QT Int : 386 ms P-R-T Axes : 036 -15 043 degrees QTc Int : 440 ms Normal sinus rhythm Inferior infarct , age undetermined Abnormal ECG When compared with ECG of 09-JAN-2023 04:11, Inferior infarct is now Present Referred By: Edna Alicea Electronically Signed By:HALIMA BURGOS
[2023-06-25 18:54] VITALS: BP 165/85; PULSE 90; RESP 18; O2SAT 94
[2023-06-25 19:34] LABS: Troponin-I High Sensitivity 5.3 ng/L (<3.5-17.0)
[2023-06-25 20:21] LABS: Troponin-I High Sensitivity 5.2 ng/L (<3.5-17.0)
[2023-06-25] MEDS: Acetaminophen 325 MG TABLET 975 MG PO (20:51)
[2023-06-25] MEDS: Ibuprofen 400 MG TABLET PO (20:51)
== END 2023-06-25 20:55 | disposition home or self-care (01) ==
PROVIDERS: Nurse Practitioner Family; Emergency Provider Student in an Organized Health Care Education/Training Program; PCP Internal Medicine
DX: M25.571 Pain in right ankle and joints of right foot (principal); R07.89 Other chest pain; M79.661 Pain in right lower leg
CPT/HCPCS: 36415; 73610; 80053; 84484; 85025; 85610; 93005; 93971; 99284; 99285

== ENCOUNTER → 2023-06-25 18:47 | Outpatient (BNV) | payer MEDICARE, SELFPAY | PROVIDERS: Emergency Provider Student in an Organized Health Care Education/Training Program; PCP Internal Medicine; Visit Provider Internal Medicine | DX: R07.9 Chest pain, unspecified (principal); R94.31 Abnormal electrocardiogram [ECG] [EKG] | CPT/HCPCS: 93010 ==